=== PATIENT | female | born 1940 | race Caucasian/White ===

== ENCOUNTER 2025-05-09 06:23 | Inpatient (IN) | payer OTHER ==
[~2025-05-09] VITALS: Ht 170.2 cm; Wt 70.6 kg
[2025-05-09] VITALS (7 sets, daily range): BP systolic 168–174; BP diastolic 73–93; PULSE 60–111; RESP 13–21; TEMP 96.8–98.7; O2SAT 95–99
--- NOTE | 2025-05-09 06:38 | ECG ---
[facility] Test Date: 2025-05-09 Test Time: 06:24:55 Pat Name: SAKSHI BROWN Department: ED Room: 0249T Gender: F Screen Handler: ELIGIO : 1940 Requested By: JAVI GARCIA Order Number: [id number] Reading MD: Estuardo Chau Measurements Intervals [place] Rate: 104 P: 0 CT: 0 QRS: 56 QRSD: 94 T: -42 QT: 351 QTc: 462 Interpretive Statements Atrial flutter Probable LVH with secondary repol abnrm Electronically Signed On 05-11-2025 9:54:52 PDT by Estuardo Chau Please click the below link to view image of tracing.
--- NOTE | 2025-05-09 07:13 | ED.PDOC ---
HPI Comments 84 y/o F, with PMHx of AFib and HTN presents to the ED for CC of palpitations. Patient states, she has been experiencing palpitations with associated weakness x3days. Patient reports, a heart rate in the 120-130's. 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 Patient comments, since dosage reduction she has had approximately x13-14 AFib episodes. Patient denies chest pain, shortness of breath, dizziness, nausea, or vomiting. No other symptoms or modifying factors present at this time. 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 all DINING SERVICE INSPECTOR Hx Family History Family History: Unknown Social History Smoker: Non-Smoker Alcohol: Denies ETOH Use Drugs: Denies Drug Use Lives In: Home Constitutional: denies: chills, diaphoresis, fatigue, fever, malaise, sweats, weakness, others EENTM: denies: blurred vision, double vision, ear bleeding, ear discharge, ear drainage, ear pain, ear ringing, eye pain, eye redness, hearing loss, mouth pain, mouth swelling, nasal discharge, nose bleeding, nose congestion, nose pa in, photophobia, tearing, throat pain, throat swelling, voice changes, others Respiratory: denies: cough, hemoptysis, orthopnea, SOB at rest, shortness of breath, SOB with excertion, stridor, wheezing, others Cardiovascular: reports: palpitations; denies: chest pain, dizzy spells, diaphoresis, Dyspnea on exertion, edema, irregular heart beat, left arm pain, lightheadedness, PND, syncope, others Gastrointestinal: denies: abdomen distended, abdominal pain, blood streaked bowels, constipated, diarrhea, dysphagia, difficulty swallowing, hematemesis, m naif, nausea, poor appetite, poor fluid intake, rectal bleeding, rectal pain, vomiting, others Genitourinary: denies: abnormal vagina bleeding, burning, dyspareunia, dysuria, flank pain, frequency, hematuria, incontinence, pain, , vagina discharge, urgency, others Neurological: denies: dizziness, fainting, headache, left sided numbness, left sided weakness, numbness, paresthesia, pre-existing deficit, right sided numbness, right sided weakness, seizure, speech problems, tingling, tremors, weakness, others Musculoskeletal: denies: back pain, gout, joint pain, joint swelling, muscle pain, muscle stiffness, neck pain, others Integumetry: denies: bruises, change in color, change in hair/nails, dryness, laceration, lesions, lumps, rash, wounds, others Allergic/Immunocompromised: denies: Difficulty Healing, Frequent Infections, Hives, Itching, others Hematologic/Lymphatic: denies: anemia, blood clots, easy bleeding, easy bruising, swollen glands, others Endocrine: denies: excessive hunger, excessive sweating, excessive thirst, excessive urination, flushing, intolerance to cold, intolerance to heat, unexpla ined weight gain, unexplained weight loss, others Psychiatric: denies: anxiety, bipolar disorder, depression, hopeless, panic disorder, schizophrenia, sleepless, suicidal, others All Other Systems: Reviewed and Negative Physical Exam General Appearance: No Apparent Distress HEENT: Normal ENT Inspection, PERRL/EOMI Neck: Full Range of Motion, Non-Tender Respiratory: Chest Non-Tender, Lungs Clear, No Accessory Muscle Use, No Respiratory Distress, Normal Breath Sounds Cardiovascular: Irregular, No Murmur, Normal Peripheral Pulses Breast Exam: Deferred Gastrointestinal: No Organomegaly, Non Tender, No Pulsatile Mass, Normal Bowel Sounds, Soft Genitalia: Deferred Pelvic: Deferred Rectal: Deferred Extremities: No calf tenderness, Normal capillary refill, Normal inspection, Normal range of motion, Non-tender, No pedal edema Neurologic: Alert, mammal keeper II-XII nml as Tested, No Motor Deficits, Normal Affect, Normal Mood, No Sensory Deficits Cerebellar Function: Normal Reflexes: Normal Skin: Dry, Normal Color, Warm Peripheral Pulses: 1+ carotid (R), 1+ carotid (L) Lymphatic: No Adenopathy Was a procedure done? Was a procedure done?: No CP Differential Dx Differential Diagnosis: A-fib, A-Flutter, Angina, Anxiety / Panic Attack, Electrolyte Disorder, Heart Failure, Pulmonary Embolus, PVC's, Renal Failure Differential Diagnosis: CHF, HTN Essential, HTN Accelerated Differential Diagnosis: Angina, Pneumonia, Pulmonary Embolus X-Ray, Labs, Meds, VS Vital Signs Date Time Temp Pulse Resp B/P (MAP) Pulse Ox O2 Delivery O2 Flow Rate FiO2 05/09/25 08:13 96.8 111 21 168/93 (118) 95 96.8 05/09/25 08:00 96.8 111 20 168/93 (118) 95 96.8 05/09/25 07:30 97 15 97 Room Air* 0 05/09/25 07:08 105 13 98 Room Air* 0 05/09/25 06:55 105 13 181/87 (118) 98 05/09/25 06:25 97.6 104 16 185/98 (127) 98 97.6 05/09/25 06:24 104 Lab Test 05/09/25 06:30 Range/Units White Blood Count 7.5 4.4-10.8 10^3/uL Red Blood Count 4.30 4.0-5.20 10^6/uL Hemoglobin 13.2 12.2-16.2 g/dL Hematocrit 40.0 36.0-46.0 % Mean Corpuscular Volume 93.0 80.0-100.0 fL Mean Corpuscular Hemoglobin 30.8 28.0-32.0 pg Mean Corpuscular Hemoglobin Concent 33.1 32.0-36.0 g/dL Red Cell Distribution Width 13.8 11.8-14.3 % Platelet Count 187 140-450 10^3/uL Mean Platelet Volume 8.0 6.9-10.8 fL Neutrophils (%) (Auto) 72.8 37.0-80.0 % Lymphocytes (%) (Auto) 11.4 10.0-50.0 % Monocytes (%) (Auto) 11.8 0.0-12.0 % Eosinophils (%) (Auto) 3.0 0.0-7.0 % Basophils (%) (Auto) 1.0 0.0-2.0 % Neutrophils # (Auto) 5.5 1.6-8.6 10 ^3/uL Lymphocytes # (Auto) 0.9 0.4-5.4 10 ^3/uL Monocytes # (Auto) 0.9 0-1.3 10 ^3/uL Eosinophils # (Auto) 0.2 0-0.8 10 ^3/uL Basophils # (Auto) 0.1 0-0.2 10 ^3/uL Nucleated Red Blood Cells 0.1 % Prothrombin Time 20.8 H 9.3-11.8 sec Prothrombin Time INR 2.11 H 0.9-1.15 Activated Partial Thromboplast Time 38.0 H 24.5-34.5 SEC D-Dimer, Quantitative 0.23 0.0-0.49 mg/L FEU Sodium Level 142 136-145 mmol/L Potassium Level 4.5 3.5-5.1 mmol/L Chloride Level 109 H 98-107 mmol/L Carbon Dioxide Level 23 20-31 mmol/L Anion Gap 10 5-15 Blood Urea Nitrogen 21 9-23 mg/dL Creatinine 0.97 0.550-1.02 mg/dL Glomerular Filtration Rate Calc 57 >90 mL/min BUN/Creatinine Ratio 21.6 H 10.0-20.0 Serum Glucose 109 H 74-106 mg/dL Calcium Level 9.9 8.7-10.4 mg/dL Magnesium Level 1.9 1.6-2.6 mg/dL Total Bilirubin 0.9 0.2-1.0 mg/dL Aspartate Amino Transferase (AST) 33 13-40 U/L Alanine Aminotransferase (ALT) 26 7-40 U/L Alkaline Phosphatase 94 46-116 U/L Troponin I High Sensitivity < 3 L </=34 ng/L B-Type Natriuretic Peptide 340.56 0-100 pg/mL Total Protein 6.6 5.7-8.2 g/dL Albumin 4.5 3.2-4.8 g/dL Thyroid Stimulating Hormone (TSH) 0.91 0.55-4.78 uIU/mL Current Medications Medications (Trade) Dose Ordered Sig/Raul Route Start Time Stop Time Status Last Admin Acetaminophen/ Hydrocodone Bitart (Raymond 5/325MG Tab) 1 tab ONCE ONCE PO 05/09/25 08:45 05/09/25 08:46 DC 05/09/25 08:[address] - [address] Ph: [phone] DIAGNOSTIC IMAGING Diagnostic Imaging Report : [id number] Signed PATIENT: SAKSHI BROWN ACCT: [id number] UNIT: [id number] : 1940 LOC: ER ROOM / BED: / AGE / SEX: 84 / F ADM STATUS: REG ER SERVICE 0 ORDERING PHYSICIAN: JAVI GARCIA MD PROCEDURE(s): CXRP - CHEST PORTABLE REASON: atrial fib ORDER NUMBER(s): [id number], ACCESSION NUMBER(s): [id number] CHEST RADIOGRAPH Indication: Atrial fib Technique: Single frontal view of the chest was obtained Comparison: None FINDINGS: Lines and Tubes: None Lungs: No focal consolidation. Pleura: No effusion. No pneumothorax. Cardiomediastinal contours: Unremarkable Bones: No acute osseous abnormality. IMPRESSION: 1. No acute cardiopulmonary disease. ATED BY: FREDRICK ROMERO MD DICTATED DATE/TIME: 05/09/25727 SIGNED BY: FREDRICK ROMERO MD SIGNED DATE/TIME: 05/09/25727 CC: X-Ray, Labs, Meds, VS Comment Course in the emergency department patient came in because of palpitation no shortness of breath no chest pains and some weakness for the past three days she was told to lower amiodarone which she did and since then she has been having recurrent atrial fibrillation the EKG shows atrial fibrillation CBC normal EKG shows atrial fibrillation no at 104 INR 2.11 D-dimer 0.23 CMP negative Magnesium 1.9 Troponin three TSH 0.91 BNP 340 prompt five six Patient will be admitted for further care Dr. Morales we will be consulted Time of 1ST Reevaluation: 07:30 Reevaluation 1ST: Unchanged Time of 2ND Reevaluation: 12:03 Reevaluation 2ND: Improved Patient Education/Counseling: Diagnosis, Treatment, Prognosis Family Education/Counseling: Diagnosis, Treatment, Prognosis, No Family Present SEPSIS Sepsis Screen Date sepsis recognized/suspect: May 09, 2025 Time Sepsis recognized/suspect: 0656 Recent Procedure: No On Antibiotic Therapy: No Respiratory Rate >20: No Heart Rate >90: Yes Temp<36 C (96.8 F) or >38.3 C: No SBP <90 or MAP <65 mmHG: No New Acute Mental Status Change: No Is the patient on CPAP, BIPAP,: No Physician Orders Electrocardigram (05/09/25 07:36) Electrocardigram (05/09/25 09:36) Chest Portable (05/09/25 07:01) Heplock Iv (05/09/25 07:01) Blood Pressure (05/09/25 07:01) Oxygen (05/09/25 07:01) Pulse Oximetry (05/09/25 07:01) Sodium Chloride 0.9% (05/09/25 07:15) Urinalysis (05/09/25 07:01) Vital Signs Date Time Temp Pulse Resp B/P (MAP) Pulse Ox O2 Delivery O2 Flow Rate FiO2 05/09/25 08:13 96.8 111 21 168/93 (118) 95 96.8 05/09/25 08:00 96.8 111 20 168/93 (118) 95 96.8 05/09/25 07:30 97 15 97 Room Air* 0 21 05/09/25 07:08 105 13 98 Room Air* 0 21 05/09/25 06:55 105 13 181/87 (118) 98 05/09/25 06:25 97.6 104 16 185/98 (127) 98 97.6 05/09/25 06:24 104 Laboratory Tests Test 05/09/25 06:30 White Blood Count 7.5 10^3/uL (4.4-10.8) Medications Medications Dose Ordered Sig/Raul Route Start Time Stop Time Status Last Admin Dose Admin Acetaminophen/ Hydrocodone Bitart 1 tab ONCE ONCE PO 05/09/25 08:45 05/09/25 08:46 DC 05/09/25 08:57 Departure 1 Departure Time of Disposition: 12:09 Impression: Primary Impression: Flutter-fibrillation Disposition: ADMITTED INPATIENT Admit to: Tele Condition: Serious Critical Care Note Critical Care Time?: No Stability Stability form required: Yes Heart Score Heart Score: Heart Score Response (Comments) Value History Slightly Suspicious 0 EKG Repolarization Disturb 1 Age >65 2 Risk Factors 1 or 2 risk factors 1 Troponin Normal limit 0 Total 4 I personally scribed for JAVI GARCIA MD ([email or web address]) on 05/09/25 at 07:13. Electronically submitted by Fela Cage ([email or web address]). I personally scribed for JAVI GARCIA MD ([email or web address]) on 05/09/25 at 09:09. El ectronically submitted by Feal Cage ([email or web address]). JAVI GARCIA MD May 09, 2025 07:13
[2025-05-09 07:15] LABS: Hematocrit 40.0 % (36.0-46.0); Hemoglobin 13.2 g/dL (12.2-16.2); Mean Corpuscular Hemoglobin 30.8 pg (28.0-32.0); Mean Corpuscular Volume 93.0 fL (80.0-100.0); Nucleated Red Blood Cells % 0.1 %
[2025-05-09] MEDS: SODIUM CHLORIDE 0.9% 1,000 ML IV ONE (07:15)
[2025-05-09 07:25] LABS: Alanine Aminotransferase 26 U/L (7-40); Albumin 4.5 g/dL (3.2-4.8); Alkaline Phosphatase 94 U/L (46-116); Anion Gap 10 (5-15); BUN/Creatinine Ratio 21.6 (10.0-20.0); Bilirubin, Total 0.9 mg/dL (0.2-1.0); Blood Urea Nitrogen 21 mg/dL (9-23); Calcium 9.9 mg/dL (8.7-10.4); Carbon Dioxide 23 mmol/L (20-31); Magnesium 1.9 mg/dL (1.6-2.6); Potassium 4.5 mmol/L (3.5-5.1); Sodium 142 mmol/L (136-145); Total Protein 6.6 g/dL (5.7-8.2)
[2025-05-09 07:29] LABS: Chloride 109 mmol/L (98-107); Glucose 109 mg/dL (74-106)
--- NOTE | 2025-05-09 07:30 | DVH ---
CHEST RADIOGRAPH Indication: Atrial fib Technique: Single frontal view of the chest was obtained Comparison: None FINDINGS: Lines and Tubes: None Lungs: No focal consolidation. Pleura: No effusion. No pneumothorax. Cardiomediastinal contours: Unremarkable Bones: No acute osseous abnormality. IMPRESSION: 1. No acute cardiopulmonary disease.
[2025-05-09 07:31] LABS: INR 2.11 (0.9-1.15); Partial Thromboplastin Time 38.0 SEC (24.5-34.5); Prothrombin Time 20.8 sec (9.3-11.8)
[2025-05-09] MEDS: HYDROcodone-ACET 5/325MG TAB PO ONE (08:57)
[2025-05-09] MEDS ORDERED: ACETAMINOPHEN 325 MG TAB PO PRN (15:15)
[2025-05-09] MEDS ORDERED: NITROGLYCERIN 0.4 MG SL TAB SL PRN (15:15)
[2025-05-09] MEDS ORDERED: MORPHINE SULFATE INJ 2 MG/ml SYRG IV PRN (15:15)
[2025-05-09] MEDS ORDERED: WARF-66 PO (15:19)
[2025-05-09] MEDS ORDERED: LEVO150T10 PO (15:19)
[2025-05-09] MEDS ORDERED: LOSA-534 PO (15:19)
[2025-05-09] MEDS ORDERED: HYDR25TA87 PO (15:19)
[2025-05-09 15:40] LABS: Triglycerides 97 mg/dL (< 150)
[2025-05-09 15:42] LABS: Cholesterol 139 mg/dL (< 200); HDL Cholesterol 57 mg/dL (40-59)
[2025-05-09] MEDS ORDERED: HYDR-4069 PO (15:45)
--- NOTE | 2025-05-09 15:45 | DVHHP2 ---
History of Present Illness Reason for Visit: Palpitations History of Present Illness Diamante Small is an 84-year-old female with past medical history of hypertension, hyperlipidemia, AFib, glaucoma, right eye surgery at [place] with permanent dilated pupils, and S1 fusion who presents to the ED with palpitations and weakness x3 days. Patient states that there are no triggering or alleviating factors. She also reports that she had gone to [place] and was placed on amio after [place] had [place] on the free[place]. She also endorses that she has had multiple abnormal heart rate rhythms since February of this year. She states that the amio was cut in half from 200-100 mg. Patient also endorses that she had a fall 2 years ago in 10 still have 0 bruising on her legs and upper extremities. She states that she was chasing a dog. In which she also stated she blue her right pupil which is now permanently dilated she reports. She also states that she lives alone and does not use any DMEs to ambulate with. Patient denies any chest pain, shortness of breath, fever, chills, lightheadedness, dizziness, recent trauma or injury, recent travels, recent sick contacts, recent ingestion of spoiled food, abdominal pain, nausea, vomiting, or diarrhea. Cardiovascular: AFIB, HTN, hyperipidemia Past Medical History Glaucoma Past Surgical History: Other (Right eye surgery at [facility] and S1 fusion) Family History: Cancer, Other (Mom with breast cancer and heart disease. Dad with heart disease.) Smoke: No ALCOHOL: none Drugs: None Lives: Alone Domestic Violence: Neg Review of Systems Constitutional: Yes: Weakness Cardiovascular: Palpitations Allergies: Coded Allergies: Atorvastatin (Verified Allergy, Unknown, 05/09/25) Medications Current Medications Medications Dose Ordered Sig/Raul Route Start Time Stop Time Status Last Admin Dose Admin Ondansetron HCl 4 mg Q4HP PRN IV 05/09/25 15:15 UNV Enoxaparin Sodium 40 mg DAILY SC 05/10/25 10:00 UNV Acetaminophen 650 mg Q6HP PRN PO 05/09/25 15:15 UNV Nitroglycerin 0.4 mg Q5MINP PRN SL 05/09/25 15:15 UNV Morphine Sulfate 2 mg Q30M PRN IV 05/09/25 15:15 UNV Exam Vital Signs Vital Signs Date Time Temp Pulse Resp B/P (MAP) Pulse Ox O2 Delivery O2 Flow Rate FiO2 05/09/25 13:44 64 12 140/67 (91) 97 05/09/25 08:13 96.8 96.8 05/09/25 07:30 Room Air* 0 21 General Appearance: Alert, Oriented X3, Cooperative, No acute distress HEENT: Mucous membr. moist/pink Respiratory: Clear to auscultation, Normal air movement Cardiovascular: Normal S1, Normal S2 Abdominal: Normal bowel sounds, Soft Extremities: Normal pulses Neuro: Normal speech, Normal tone, Sensation intact Psych/Mental Status: Mental status NL, Mood NL Labs/Xrays Labs Test 05/09/25 06:30 Range/Units White Blood Count 7.5 4.4-10.8 10^3/uL Red Blood Count 4.30 4.0-5.20 10^6/uL Hemoglobin 13.2 12.2-16.2 g/dL Hematocrit 40.0 36.0-46.0 % Mean Corpuscular Volume 93.0 80.0-100.0 fL Mean Corpuscular Hemoglobin 30.8 28.0-32.0 pg Mean Corpuscular Hemoglobin Concent 33.1 32.0-36.0 g/dL Red Cell Distribution Width 13.8 11.8-14.3 % Platelet Count 187 140-450 10^3/uL Mean Platelet Volume 8.0 6.9-10.8 fL Neutrophils (%) (Auto) 72.8 37.0-80.0 % Lymphocytes (%) (Auto) 11.4 10.0-50.0 % Monocytes (%) (Auto) 11.8 0.0-12.0 % Eosinophils (%) (Auto) 3.0 0.0-7.0 % Basophils (%) (Auto) 1.0 0.0-2.0 % Neutrophils # (Auto) 5.5 1.6-8.6 10 ^3/uL Lymphocytes # (Auto) 0.9 0.4-5.4 10 ^3/uL Monocytes # (Auto) 0.9 0-1.3 10 ^3/uL Eosinophils # (Auto) 0.2 0-0.8 10 ^3/uL Basophils # (Auto) 0.1 0-0.2 10 ^3/uL Nucleated Red Blood Cells 0.1 % Prothrombin Time 20.8 H 9.3-11.8 sec Prothrombin Time INR 2.11 H 0.9-1.15 Activated Partial Thromboplast Time 38.0 H 24.5-34.5 SEC D-Dimer, Quantitative 0.23 0.0-0.49 mg/L FEU Sodium Level 142 136-145 mmol/L Potassium Level 4.5 3.5-5.1 mmol/L Chloride Level 109 H 98-107 mmol/L Carbon Dioxide Level 23 20-31 mmol/L Anion Gap 10 5-15 Blood Urea Nitrogen 21 9-23 mg/dL Creatinine 0.97 0.550-1.02 mg/dL Glomerular Filtration Rate Calc 57 >90 mL/min BUN/Creatinine Ratio 21.6 H 10.0-20.0 Serum Glucose 109 H 74-106 mg/dL Calcium Level 9.9 8.7-10.4 mg/dL Magnesium Level 1.9 1.6-2.6 mg/dL Total Bilirubin 0.9 0.2-1.0 mg/dL Aspartate Amino Transferase (AST) 33 13-40 U/L Alanine Aminotransferase (ALT) 26 7-40 U/L Alkaline Phosphatase 94 46-116 U/L Troponin I High Sensitivity < 3 L </=34 ng/L B-Type Natriuretic Peptide 340.56 0-100 pg/mL Total Protein 6.6 5.7-8.2 g/dL Albumin 4.5 3.2-4.8 g/dL Thyroid Stimulating Hormone (TSH) 0.91 0.55-4.78 uIU/mL CHEST RADIOGRAPH Indication: Atrial fib Technique: Single frontal view of the chest was obtained Comparison: None FINDINGS: Lines and Tubes: None Lungs: No focal consolidation. Pleura: No effusion. No pneumothorax. Cardiomediastinal contours: Unremarkable Bones: No acute osseous abnormality. IMPRESSION: 1. No acute cardiopulmonary disease. Assessment/Plan Assessment/Plan Plan Palpitations Generalized Weakness Hypertensive urgency History of hyperlipidemia History of AFib History of glaucoma History of right eye surgery History of S1 fusion with chronic back pain History of right permanently dilated pupil status post fall 2 years ago after chasing a dog Plan Admit to tele Pain management Troponins UA TSH BNP D-dimer PT/PTT Chest x-ray noted Mag level EKG Echo ordered Hemoglobin A1c TSH Lipid panel Free T4 Diet Home medications reconciled DVT prophylaxis-patient already on warfarin and INR is high PUD prophylaxis-Protonix Discussed plan of care with patient and nurse Cardiology consult [id number] Advanced care planning discussed [id number] Preventive counseling healthy eating habits, physical activity, and regular checkups Plan discussed with: Patient My Orders Orders - BRIANNAMEGAN UGALDE RETENTION MANAGER Procedure Category Date Status Time * Cardiology Consult CONS 05/09/25 Transmitted 15:13 Admit ADMIT 05/09/25 Transmitted 15:13 Allergies MIGDALIA 05/09/25 In Process 15:13 Code Status CODE 05/09/25 Transmitted 15:13 Ondansetron Hcl PHA 05/09/25 Logged (Zofran) 15:15 Enoxaparin Sodium PHA 05/10/25 Logged (Lovenox) 10:00 Complete Blood Count LAB 05/10/25 Verified 04:00 Comprehensive LAB 05/10/25 Verified Metabolic Panel 04:00 Cardiac DIET 05/09/25 Transmitted Diet-2gna,Lofat,Lochol Dinner Acetaminophen Tablet PHA 05/09/25 Logged (Tylenol Tablet) 15:15 Nitroglycerin PHA 05/09/25 Logged Sublingual (Ntrostat 15:15 Morphine Sulfate PHA 05/09/25 Logged Injection 15:15 Stat Ekg For Chest [facility] 05/09/25 In Process Pain 15:13 Notify Md Of Changes [facility] 05/09/25 In Process From Base 15:13 Warp Hanger For [facility] 05/09/25 In Process 24 Hours 15:13 Emergency Dysrhythmia [facility] 05/09/25 In Process Protocol 15:13 Rhythm Strips Once [facility] 05/09/25 In Process Every Shift 15:13 Oxygen By Nasal RT 05/09/25 Transmitted Cannula 15:13 Echo 2d Mode Cardiac US 05/09/25 Logged DOP 15:13 Hemoglobin A1c LAB 05/09/25 Logged 15:13 Thyroid Stimulating LAB 05/09/25 Logged Hormone 15:13 Lipid Panel LAB 05/09/25 Logged 15:13 Free T4 (Free LAB 05/09/25 Logged Thyroxine) 15:13 Losartan Tablet PHA 05/09/25 Verified (Cozaar Tablet) 22:00 Warfarin Sodium PHA 05/10/25 Verified (Coumadin) 10:00 (Nf) Levothyroxine PHA 05/10/25 Verified Sodium 10:00 Atorvastatin (Lipitor) PHA 05/09/25 Verified 22:00 Date of Service: May 09, 2025 Billing Provider: MEGAN JACOB Common Visit Codes: [id number]-[id number] INP/OBS CARE (HIGH) Secondary Visit Codes: [id number] COUNSELING IND, [id number] CARE PLAN 30 MINUTES MEGAN JACOB May 09, 2025 15:45
[2025-05-09] MEDS: PANTOPRAZOLE 40 MG/10 ML VIAL INJ IV SCH (16:00)
[2025-05-09] MEDS: HYDROcodone-ACET 7.5/325MG TAB PO PRN (16:26)
[2025-05-09] MEDS ORDERED: ROSU10TA16 PO (18:41)
[2025-05-09] MEDS ORDERED: AMIO200T33 PO (18:41)
[2025-05-09] MEDS: WARFARIN SODIUM 5 MG TAB PO ONE (20:12)
[2025-05-09] MEDS: PRAVASTATIN SODIUM 20 MG TAB PO SCH (21:29)
[2025-05-09] MEDS: LOSARTAN POTASSIUM 50 MG TAB PO SCH (21:32)
[2025-05-10] VITALS (8 sets, daily range): BP systolic 133–202; BP diastolic 66–92; PULSE 52–99; RESP 16–20; TEMP 97–98.4; O2SAT 93–98
[2025-05-10] MEDS: LEVOTHYROXINE SODIUM 50 MCG TAB PO SCH (05:40)
[2025-05-10 06:05] LABS: Urine Protein, UAD Negative (Negative)
[2025-05-10 06:48] LABS: Hematocrit 35.2 % (36.0-46.0); Hemoglobin 11.7 g/dL (12.2-16.2); Mean Corpuscular Hemoglobin 30.9 pg (28.0-32.0); Mean Corpuscular Volume 93.1 fL (80.0-100.0); Nucleated Red Blood Cells % 0.0 %
[2025-05-10 07:05] LABS: INR 2.37 (0.9-1.15); Partial Thromboplastin Time 38.6 SEC (24.5-34.5); Prothrombin Time 23.1 sec (9.3-11.8)
[2025-05-10 07:09] LABS: Alanine Aminotransferase 22 U/L (7-40); Albumin 4.0 g/dL (3.2-4.8); Alkaline Phosphatase 77 U/L (46-116); Anion Gap 10 (5-15); BUN/Creatinine Ratio 21.6 (10.0-20.0); Bilirubin, Total 0.9 mg/dL (0.2-1.0); Blood Urea Nitrogen 19 mg/dL (9-23); Calcium 10.1 mg/dL (8.7-10.4); Carbon Dioxide 24 mmol/L (20-31); Chloride 108 mmol/L (98-107); Glucose 106 mg/dL (74-106); Potassium 4.3 mmol/L (3.5-5.1); Sodium 142 mmol/L (136-145); Total Protein 5.9 g/dL (5.7-8.2)
[2025-05-10] MEDS ORDERED: ENOXAPARIN SOD 40 MG/0.4 ML SYRINGE SC SCH (10:00)
--- NOTE | 2025-05-10 11:12 | DVHPN2 ---
Subjective Seen and examined at bedside, patient is going into Tachybrady Syndrome. Unable to give Amio IV. Will monitor, may need PPM?? Cardio Cx with Dr. Morales. Unable to DC due to unstable HR. Changes from previous H/P or p: No Changes Cardiovascular: Palpitations Objective Vitals Vital Signs Date Time Temp Pulse Resp B/P (MAP) Pulse Ox O2 Delivery O2 Flow Rate FiO2 05/10/25 10:23 146/76 05/10/25 09:00 97.5 59 16 96 97.5 05/10/25 08:00 Room Air* 0 21 Intake/Output Intake and Output 05/10/25 07:00 Intake Total 500 ml Balance 500 ml Intake Oral 500 ml # Voids 1 General Appearance: Alert, Oriented X3, Cooperative HEENT: Atraumatic Lungs: Clear to auscultation Cardiovascular: Normal S1, Normal S2, Other (Irregular) Abdomen: Normal bowel sounds, Soft Psych/Mental Status: Mental status NL Medications Current Medications Medications Dose Ordered Sig/Raul Route Start Time Stop Time Status Last Admin Dose Admin Ondansetron HCl 4 mg Q4HP PRN IV 05/09/25 15:15 Acetaminophen 650 mg Q6HP PRN PO 05/09/25 15:15 Nitroglycerin 0.4 mg Q5MINP PRN SL 05/09/25 15:15 Morphine Sulfate 2 mg Q30M PRN IV 05/09/25 15:15 Losartan Potassium 50 mg BID PO 05/09/25 22:00 05/10/25 10:23 50 MG Warfarin Sodium 5 mg DAILY PO 05/10/25 10:00 UNV Levothyroxine Sodium 150 mcg DAILY@0600 PO 05/10/25 06:00 05/10/25 05:40 150 MCG Pravastatin Sodium 80 mg HS PO 05/09/25 22:00 05/09/25 21:29 80 MG Acetaminophen/ Hydrocodone Bitart 1 tab QID PRN PO 05/09/25 15:45 05/10/25 05:40 1 TAB Pantoprazole Sodium 40 mg DAILY IV 05/09/25 16:00 05/10/25 10:23 40 MG Warfarin Sodium RX PROTOCOL PER PHARMACY PO 05/09/25 16:15 Hydralazine HCl 25 mg Q8HR PO 05/09/25 22:00 05/10/25 05:41 25 MG Laboratory Results Laboratory Tests 05/10/25 05:12 Chemistry Test 05/10/25 05:12 Albumin 4.0 g/dL (3.2-4.8) Calcium Level 10.1 mg/dL (8.7-10.4) Total Protein 5.9 g/dL (5.7-8.2) Coagulation Test 05/10/25 05:12 Prothrombin Time 23.1 sec (9.3-11.8) H Prothrombin Time INR 2.37 (0.9-1.15) H Activated Partial Thromboplast Time 38.6 SEC (24.5-34.5) H LFT Test 05/10/25 05:12 Alanine Aminotransferase (ALT) 22 U/L (7-40) Alkaline Phosphatase 77 U/L (46-116) Aspartate Amino Transferase (AST) 28 U/L (13-40) Total Bilirubin 0.9 mg/dL (0.2-1.0) Urinalysis Test 05/10/25 05:00 Urine Color Light-yellow (Yellow) Urine Clarity Clear (Clear) Urine pH 5.5 (5.0-9.0) Urine Specific [place] 1.021 (1.001-1.035) Urine Protein Negative (Negative) Urine Ketones Negative (Negative) Urine Blood Negative /uL (Negative) Urine Nitrite Negative (Negative) Urine Bilirubin Negative (Negative) Urine Urobilinogen Normal mg/dL (Negative) Urine Leukocyte Esterase 1+ /uL (Negative) Urine RBC 18 /hpf (0 - 4) Urine Microscopic WBC 12 /HPF (0-5) H Urine Squamous Epithelial Cells Few /hpf (<5) Urine Bacteria Few /hpf (None Seen) H Urine Glucose Normal mg/dL (Normal) Assessment/Plan Assessment/Plan # A-Fibb with RVR vs. Tachybrady Syndrome # Hypertensive Heart Disease with possible acute diastolic CHF- Monitor and adjust meds as needed, ECHO. Cx. Dr. Morales # Hypothyroid- Synthroid Critical care time 37 mins Plan discussed with: Patient My Orders Orders - SANDRA ROTH MD Procedure Category Date Status Time Electrocardigram EKG 05/10/25 Logged 10:30 Basic Metabolic Panel LAB 05/11/25 Verified 04:00 Magnesium LAB 05/11/25 Verified 04:00 Date of Service: May 10, 2025 Billing Provider: SANDRA ROTH MD Common Visit Codes: [id number] CARE 30-74 MIN SANDRA ROTH MD May 10, 2025 11:12
[2025-05-10] MEDS: CEPHALEXIN 250 MG CAP PO SCH (13:26)
--- NOTE | 2025-05-10 14:48 | DVHSR ---
APPROVED REPORT EXAM: Two-dimensional and M-mode echocardiogram with Doppler and color Doppler. Blood Pressure: 134/72 mmHg INDICATION Palpitations RISK FACTORS Height: 67, Weight: 164 DIMENSIONS LVDd (3.8-5.7cm)LA (2D)3.9 (1.9-4.0cm)Aortic Root2.5 (2.0-3.7cm) LVDs (2.5-4.0cm)LA (MM) (1.9-4.0cm)Aortic Cusp Exc0.9 (1.5-2.0cm) EF (%) 73.0 (55-70%)Rt. Atrium3.5 (1.9-4.0cm)Asc. Aorta cm Mitral Valve MitralMitral Stenosis E wave1.37m/sMV Mean GR.2mmHg A wave1.06m/sMV Peak GR.116mmHg E/A ratio1.32D MVAcm2 DECEL [id number] 1/2 [id number] IVRTmsDop MVA2.85cm2 Aortic Valve Aortic ValveAortic Stenosis V11.11m/[place] Mean GR.17mmHg V22.95m/[place] Peak GR.35mmHg LVOT Diameter1.7 (1.8-2.4cm)Doppler AVA0.85cm2 Pulmonic Valve V21.03m/s Tricuspid Valve TR Velocity2.56m/s [id number] Conclusion lvef 55% moderate LVH aortic sclerosi moderate MAC mild mitral regurg
[2025-05-10] MEDS: HYDROmorphone HCL 2 MG/ML VL/or syr IV PRN (16:25)
--- NOTE | 2025-05-10 17:02 | DVH ---
EXAM: CT HEAD WITHOUT CONTRAST HISTORY: Severe Headaches COMPARISON: None TECHNIQUE: Noncontrast axial CT images of the head were performed. Sagittal and coronal reformatted i mages were obtained. This CT exam was performed using 1 or more of the following dose reduction techn iques: Automated exposure control, adjustment of the mA and/or kv according to patient size, or the u se of iterative reconstruction techniques. Radiation Dose: CTDI volume is 56.36 mGy. Dose-length product is 998.01 mGy*cm FINDINGS: No intracranial hemorrhage, mass, midline shift, hydrocephalus, or evidence of acute large vessel inf arct. There is mildly decreased attenuation in the periventricular white matter. There are bilateral basal ganglia calcifications. There are postoperative changes of bilateral cataract extraction surg denise. There is mucosal thickening of the right sphenoid and ethmoid sinuses. The bilateral mastoid air cells and middle ear spaces are clear. There is an old fracture of the right orbital floor. No crani al fracture or scalp edema. IMPRESSION: 1. Mild chronic ischemic changes without evidence of acute intracranial process. 2. Mild paranasal sinus disease. 3. Old fracture of the right orbital floor.
[2025-05-10] MEDS: WARFARIN SODIUM 2 MG TAB PO ONE (18:26)
[2025-05-10] MEDS: ONDANSETRON HCL 4 MG/2 ML VIAL IV PRN (18:30)
[2025-05-11] VITALS (7 sets, daily range): BP systolic 100–119; BP diastolic 56–80; PULSE 85–104; RESP 18–19; TEMP 97.4–98.1; O2SAT 94–99
[2025-05-11] MEDS: PANTOPRAZOLE 40 MG TAB PO SCH (05:38)
[2025-05-11 06:22] LABS: Anion Gap 12 (5-15); Calcium 10.2 mg/dL (8.7-10.4); Carbon Dioxide 23 mmol/L (20-31); Chloride 101 mmol/L (98-107); Potassium 4.3 mmol/L (3.5-5.1)
[2025-05-11 06:28] LABS: BUN/Creatinine Ratio 20.8 (10.0-20.0); Blood Urea Nitrogen 20 mg/dL (9-23); Glucose 108 mg/dL (74-106); Magnesium 1.7 mg/dL (1.6-2.6); Sodium 136 mmol/L (136-145)
[2025-05-11 06:32] LABS: INR 2.42 (0.9-1.15); Partial Thromboplastin Time 40.7 SEC (24.5-34.5); Prothrombin Time 23.5 sec (9.3-11.8)
[2025-05-11 06:34] LABS: Hematocrit 41.4 % (36.0-46.0); Hemoglobin 14.1 g/dL (12.2-16.2); Mean Corpuscular Hemoglobin 31.1 pg (28.0-32.0); Mean Corpuscular Volume 91.2 fL (80.0-100.0); Nucleated Red Blood Cells % 0.1 %
--- NOTE | 2025-05-11 13:45 | DVHPN2 ---
Reviewed: Care Plan, H&P, Labs, Medications, Previous Orders, Radiology Changes from previous H/P or p: No Changes Cardiovascular: Palpitations Objective Vitals Vital Signs Date Time Temp Pulse Resp B/P (MAP) Pulse Ox O2 Delivery O2 Flow Rate FiO2 05/11/25 10:00 104/56 05/11/25 09:00 97.4 92 18 97 97.4 05/10/25 20:00 Room Air* 0 21 Intake/Output Intake and Output 05/11/25 07:00 Intake Total 715 ml Balance 715 ml Intake Oral 715 ml # Voids 4 General Appearance: Alert, Oriented X3, Cooperative HEENT: Atraumatic Lungs: Clear to auscultation Cardiovascular: Normal S1, Normal S2, Other (Irregular) Abdomen: Normal bowel sounds, Soft Psych/Mental Status: Mental status NL Medications Current Medications Medications Dose Ordered Sig/Raul Route Start Time Stop Time Status Last Admin Dose Admin Ondansetron HCl 4 mg Q4HP PRN IV 05/09/25 15:15 05/10/25 18:30 4 MG Acetaminophen 650 mg Q6HP PRN PO 05/09/25 15:15 Nitroglycerin 0.4 mg Q5MINP PRN SL 05/09/25 15:15 Morphine Sulfate 2 mg Q30M PRN IV 05/09/25 15:15 Losartan Potassium 50 mg BID PO 05/09/25 22:00 05/10/25 21:10 50 MG Warfarin Sodium 5 mg DAILY PO 05/10/25 10:00 UNV Levothyroxine Sodium 150 mcg DAILY@0600 PO 05/10/25 06:00 05/11/25 05:38 150 MCG Pravastatin Sodium 80 mg HS PO 05/09/25 22:00 05/10/25 21:12 80 MG Acetaminophen/ Hydrocodone Bitart 1 tab QID PRN PO 05/09/25 15:45 05/11/25 05:43 1 TAB Warfarin Sodium RX PROTOCOL PER PHARMACY PO 05/09/25 16:15 Hydralazine HCl 25 mg Q8HR PO 05/09/25 22:00 05/10/25 21:09 25 MG Pantoprazole Sodium 40 mg DAILY@0600 PO 05/11/25 06:00 05/11/25 05:38 40 MG Cephalexin 500 mg TID PO 05/10/25 14:00 05/11/25 05:38 500 MG Clonidine HCl 0.2 mg Q6HP PRN PO 05/10/25 16:00 Hydromorphone HCl 1 mg Q3HPRN PRN IV 05/10/25 16:00 05/10/25 16:25 1 MG Laboratory Results Laboratory Tests 05/11/25 05:56 Chemistry Test 05/11/25 05:56 Calcium Level 10.2 mg/dL (8.7-10.4) Magnesium Level 1.7 mg/dL (1.6-2.6) Coagulation Test 05/11/25 05:56 Prothrombin Time 23.5 sec (9.3-11.8) H Prothrombin Time INR 2.42 (0.9-1.15) H Activated Partial Thromboplast Time 40.7 SEC (24.5-34.5) H Urinalysis Test 05/10/25 05:00 Urine Color Light-yellow (Yellow) Urine Clarity Clear (Clear) Urine pH 5.5 (5.0-9.0) Urine Specific [place] 1.021 (1.001-1.035) Urine Protein Negative (Negative) Urine Ketones Negative (Negative) Urine Blood Negative /uL (Negative) Urine Nitrite Negative (Negative) Urine Bilirubin Negative (Negative) Urine Urobilinogen Normal mg/dL (Negative) Urine Leukocyte Esterase 1+ /uL (Negative) Urine RBC 18 /hpf (0 - 4) Urine Microscopic WBC 12 /HPF (0-5) H Urine Squamous Epithelial Cells Few /hpf (<5) Urine Bacteria Few /hpf (None Seen) H Urine Glucose Normal mg/dL (Normal) Labs and/or images reviewed: Labs reviewed by me, Image(s) reviewed by me Assessment/Plan Assessment/Plan Covering for Dr Durant #A-Fib with RVR vs. Tachybrady Syndrome # Hypertensive Heart Disease with possible acute diastolic CHF- Monitor and adjust meds as needed, ECHO 55 percent ejection fraction. Cx. Dr. Morales appreciated # Hypothyroid- Synthroid TSH normal Plan discussed with: Patient Date of Service: May 11, 2025 Billing Provider: GARO MACHADO MD Common Visit Codes: [id number] INP/OBS CARE(HIGH) GARO MACHADO MD May 11, 2025 13:45
--- NOTE | 2025-05-11 17:42 | DVHCONRES ---
Date Seen: May 11, 2025 Resident Creating Document: PREETI MARTINEZ RESDIENT History of Present Illness This is an 84-year-old female with past medical history of paroxysmal AFib, dyslipidemia, hypertension and glaucoma came to the hospital due to palpitation. Patient has history of AFib for 20 years, and has been controlled with 200 mg amiodarone daily. Amiodarone was cut down to 100 mg daily on February 2025, which subsequently the patient developed palpitation and AFib. She underwent Holter monitoring at Dr. Morales office 3 weeks back (results pending), but since couple of the she got more worse which prompted this visit. He also reports of generalized weakness. PMHx: Paroxysmal AFib, dyslipidemia, hypertension and glaucoma Home medication: Amiodarone 100 mg daily, hydralazine 25 t.i.d., losartan 50 mg b.i.d., rosuvastatin, warfarin 5 mg daily Allergic history: Atorvastatin Chest seen and examined at the bedside. Patient is seen complaining of palpitation. Family History: Patient reports no known family medical history. Allergies: Coded Allergies: Atorvastatin (Verified Allergy, Unknown, 05/09/25) Home Meds Reported Medications Amiodarone Hcl (Amiodarone Hcl) 200 Mg Tab, 100 MG PO DAILY for 30 Days 05/09/25 Rosuvastatin Calcium (Crestor) 10 Mg Tab, 10 MG PO, TAB 05/09/25 Hydrocodone-Acetaminophen (Hydrocodone/Acetaminophen 7.5-325 mg) 1 Tab Tab, 1 TAB PO QID PRN 05/09/25 Warfarin Sodium (Warfarin Sodium) 5 Mg Tab, 1 TAB PO DAILY 05/09/25 Hydralazine HCl (Hydralazine HCl) 25 Mg Tab, 1 TAB PO TID PRN 05/09/25 Losartan Potassium (Losartan Potassium) 50 Mg Tab, 1 TAB PO BID 05/09/25 Levothyroxine Sodium (Levothyroxine Sodium) 150 Mcg Tab, 1 TAB PO DAILY 05/09/25 Current Medications Current Medications Medications (Trade) Dose Ordered Sig/Raul Route PRN Reason Start Time Stop Time Status Last Admin Pantoprazole Sodium (Protonix Tablet) 40 mg DAILY@0600 PO 05/11/25 06:00 05/11/25 05:38 Vital Signs Vital Signs Date Time Temp Pulse Resp B/P (MAP) Pulse Ox O2 Delivery O2 Flow Rate FiO2 05/11/25 14:00 119/62 05/11/25 13:00 97.4 90 18 96 97.4 05/11/25 08:00 Room Air* 0 21 Physical Exam General Appearance: Alert, Oriented X3, Cooperative, No acute distress HEENT: Atraumatic, PERRLA, EOMI, Mucous membrane moist/pink Respiratory: Clear to auscultation, Normal air movement Cardiovascular: Regular rate, Normal S1, Normal S2, No murmurs, no chest wall tenderness Abdominal: Normal bowel sounds, Soft, No tenderness, No hepatospenomegaly, No masses Extremities: No clubbing, No cyanosis, No edema, Normal pulses, No tenderness/swelling Skin: No rashes, No breakdown, No significant lesion Neuro: Normal gait, Normal speech, Strength at 5/5 X4 ext, Normal tone, Sensation intact, Cranial nerves 3-12 NL, Reflexes 2+ Psych/Mental Status: Mental status NL, Mood NL Labs/Diagnostic Data Labs Test 05/11/25 05:56 05/10/25 05:12 05/10/25 05:00 05/09/25 06:30 Range/Units White Blood Count 9.1 # 4.4-10.8 10^3/uL Red Blood Count 4.54 4.0-5.20 10^6/uL Hemoglobin 14.1 # 12.2-16.2 g/dL Hematocrit 41.4 # 36.0-46.0 % Mean Corpuscular Volume 91.2 80.0-100.0 fL Mean Corpuscular Hemoglobin 31.1 28.0-32.0 pg Mean Corpuscular Hemoglobin Concent 34.1 32.0-36.0 g/dL Red Cell Distribution Width 13.4 11.8-14.3 % Platelet Count 239 140-450 10^3/uL Mean Platelet Volume 7.7 6.9-10.8 fL Neutrophils (%) (Auto) 72.0 37.0-80.0 % Lymphocytes (%) (Auto) 13.6 10.0-50.0 % Monocytes (%) (Auto) 10.8 0.0-12.0 % Eosinophils (%) (Auto) 2.6 0.0-7.0 % Basophils (%) (Auto) 1.0 0.0-2.0 % Neutrophils # (Auto) 6.5 1.6-8.6 10 ^3/uL Lymphocytes # (Auto) 1.2 0.4-5.4 10 ^3/uL Monocytes # (Auto) 1.0 0-1.3 10 ^3/uL Eosinophils # (Auto) 0.2 0-0.8 10 ^3/uL Basophils # (Auto) 0.1 0-0.2 10 ^3/uL Nucleated Red Blood Cells 0.1 % Prothrombin Time 23.5 H 9.3-11.8 sec Prothrombin Time INR 2.42 H 0.9-1.15 Activated Partial Thromboplast Time 40.7 H 24.5-34.5 SEC Sodium Level 136 # 136-145 mmol/L Potassium Level 4.3 3.5-5.1 mmol/L Chloride Level 101 98-107 mmol/L Carbon Dioxide Level 23 20-31 mmol/L Anion Gap 12 5-15 Blood Urea Nitrogen 20 9-23 mg/dL Creatinine 0.96 0.550-1.02 mg/dL Glomerular Filtration Rate Calc 58 >90 mL/min BUN/Creatinine Ratio 20.8 H 10.0-20.0 Serum Glucose 108 H 74-106 mg/dL Calcium Level 10.2 8.7-10.4 mg/dL Magnesium Level 1.7 1.6-2.6 mg/dL Total Bilirubin 0.9 0.2-1.0 mg/dL Aspartate Amino Transferase (AST) 28 13-40 U/L Alanine Aminotransferase (ALT) 22 7-40 U/L Alkaline Phosphatase 77 46-116 U/L Total Protein 5.9 5.7-8.2 g/dL Albumin 4.0 3.2-4.8 g/dL Urine Color Light-yellow Yellow Urine Clarity Clear Clear Urine pH 5.5 5.0-9.0 Urine Specific [place] 1.021 1.001-1.035 Urine Protein Negative Negative Urine Ketones Negative Negative Urine Blood Negative Negative /uL Urine Nitrite Negative Negative Urine Bilirubin Negative Negative Urine Urobilinogen Normal Negative mg/dL Urine Leukocyte Esterase 1+ Negative /uL Urine RBC 18 0 - 4 /hpf Urine Microscopic WBC 12 H 0-5 /HPF Urine Squamous Epithelial Cells Few <5 /hpf Urine Bacteria Few H None Seen /hpf Urine Glucose Normal Normal mg/dL D-Dimer, Quantitative 0.23 0.0-0.49 mg/L FEU Hemoglobin A1c 5.5 <5.7 % A1C Troponin I High Sensitivity < 3 L </=34 ng/L B-Type Natriuretic Peptide 340.56 0-100 pg/mL Triglycerides Level 97 < 150 mg/dL Cholesterol Level 139 < 200 mg/dL LDL Cholesterol 70 < 100 mg/dL HDL Cholesterol 57 40-59 mg/dL Thyroid Stimulating Hormone (TSH) 0.91 0.55-4.78 uIU/mL Free Thyroxine (T4) Calculated 1.78 H 0.89-1.76 ng/dL Assessment Palpitation due to atrial fibrillation Paroxysmal AFib Hypertension Dyslipidemia Glaucoma EKGs shows atrial fibrillation * Serial trop I is within normal limits, BNP is raised at 304 * Echo shows moderate LVH with LVEF 55% * Chads Vasc score: 4 Plan/recommendation (Case discussed with Dr. Moraels) * Continue anticoagulant, warfarin * Metoprolol 25 mg twice daily * Amiodarone 200 mg daily * We follow up with the patient * Rest of plan per primary team Thank you giving us the opportunity to take care of your patient. Please call back if you have any question/concern. Plan discussed with: Patient, Other (RN) PREETI MARTINEZ May 11, 2025 17:42
[2025-05-11] MEDS: WARFARIN SODIUM 2 MG TAB PO ONE (17:52)
[2025-05-11] MEDS: AMIODARONE HCL 200 MG TAB PO ONE (19:15)
[2025-05-11] MEDS: METOPROLOL TARTRATE 25 MG TAB PO SCH (22:09)
[2025-05-12] VITALS (8 sets, daily range): BP systolic 115–128; BP diastolic 61–69; PULSE 51–62; RESP 16–18; TEMP 97.6–98.1; O2SAT 94–98
[2025-05-12 07:28] LABS: INR 2.59 (0.9-1.15); Partial Thromboplastin Time 40.8 SEC (24.5-34.5); Prothrombin Time 25.0 sec (9.3-11.8)
--- NOTE | 2025-05-12 08:19 | DVHPN2 ---
Progress Note Date Seen: May 12, 2025 Medical Necessity Reason Pt with a Central, PICC or Fol: No Subjective Patient reports: Feels better Other Systems: afib --> SR Objective vital signs Vital Sign Date Time Temp Pulse Resp B/P (MAP) Pulse Ox O2 Delivery O2 Flow Rate FiO2 05/12/25 05:00 98.0 62 17 123/63 (83) 94 98.0 05/11/25 20:00 Room Air* 0 21 Total Intake and Output 05/11/25 05/11/25 05/12/25 15:00 23:00 07:00 Intake Total 705 ml 1372 ml Output Total 920 ml Balance 705 ml 452 ml medications Current Medications Medications Dose Ordered Sig/Raul Route Start Time Stop Time Status Last Admin Dose Admin Ondansetron HCl 4 mg Q4HP PRN IV 05/09/25 15:15 05/10/25 18:30 4 MG Acetaminophen 650 mg Q6HP PRN PO 05/09/25 15:15 Nitroglycerin 0.4 mg Q5MINP PRN SL 05/09/25 15:15 Morphine Sulfate 2 mg Q30M PRN IV 05/09/25 15:15 Losartan Potassium 50 mg BID PO 05/09/25 22:00 05/11/25 22:10 50 MG Warfarin Sodium 5 mg DAILY PO 05/10/25 10:00 UNV Levothyroxine Sodium 150 mcg DAILY@0600 PO 05/10/25 06:00 05/12/25 06:34 150 MCG Pravastatin Sodium 80 mg HS PO 05/09/25 22:00 05/10/25 21:12 80 MG Acetaminophen/ Hydrocodone Bitart 1 tab QID PRN PO 05/09/25 15:45 05/11/25 15:00 1 TAB Warfarin Sodium RX PROTOCOL PER PHARMACY PO 05/09/25 16:15 Pantoprazole Sodium 40 mg DAILY@0600 PO 05/11/25 06:00 05/12/25 06:35 40 MG Cephalexin 500 mg TID PO 05/10/25 14:00 05/12/25 06:35 500 MG Clonidine HCl 0.2 mg Q6HP PRN PO 05/10/25 16:00 Hydromorphone HCl 1 mg Q3HPRN PRN IV 05/10/25 16:00 05/10/25 16:25 1 MG Metoprolol Tartrate 25 mg BID PO 05/11/25 22:00 05/11/25 22:09 25 MG Amiodarone HCl 200 mg DAILY PO 05/12/25 10:00 Examination: GENERAL:Abnormal, HEENT:Abnormal, LUNGS:Abnormal, CVS:Abnormal, ABDOMEN:Abnormal laboratory and microbiology Laboratory Tests 05/11/25 05:56 Test 05/11/25 05:56 Range/Units Serum Glucose 108 H 74-106 mg/dL Problem List/Assessment/Plan Problem List/Assessment/Plan afib htn HL cont losarta and hydralazine increased amio to 200 mg currently SR observe today consider bb 1 dose given Plan discussed with: Patient Date of Service: May 12, 2025 Billing Provider: NANCY ROGERS MD Common Visit Codes: NOT BILLABLE NANCY ROGERS MD May 12, 2025 08:19
--- NOTE | 2025-05-12 09:55 | DVHPN2 ---
Reviewed: Care Plan, H&P, Labs, Medications, Previous Orders, Radiology Changes from previous H/P or p: No Changes Cardiovascular: Palpitations Objective Vitals Vital Signs Date Time Temp Pulse Resp B/P (MAP) Pulse Ox O2 Delivery O2 Flow Rate FiO2 05/12/25 05:00 98.0 62 17 123/63 (83) 94 98.0 05/11/25 20:00 Room Air* 0 21 Intake/Output Intake and Output 05/12/25 07:00 Intake Total 2077 ml Output Total 920 ml Balance 1157 ml Intake Oral 2077 ml Output Urine Total 920 ml # Voids 2 General Appearance: Alert, Oriented X3, Cooperative HEENT: Atraumatic Lungs: Clear to auscultation Cardiovascular: Normal S1, Normal S2, Other (Irregular) Abdomen: Normal bowel sounds, Soft Psych/Mental Status: Mental status NL Medications Current Medications Medications Dose Ordered Sig/Raul Route Start Time Stop Time Status Last Admin Dose Admin Ondansetron HCl 4 mg Q4HP PRN IV 05/09/25 15:15 05/10/25 18:30 4 MG Acetaminophen 650 mg Q6HP PRN PO 05/09/25 15:15 Nitroglycerin 0.4 mg Q5MINP PRN SL 05/09/25 15:15 Morphine Sulfate 2 mg Q30M PRN IV 05/09/25 15:15 Losartan Potassium 50 mg BID PO 05/09/25 22:00 05/11/25 22:10 50 MG Warfarin Sodium 5 mg DAILY PO 05/10/25 10:00 UNV Levothyroxine Sodium 150 mcg DAILY@0600 PO 05/10/25 06:00 05/12/25 06:34 150 MCG Pravastatin Sodium 80 mg HS PO 05/09/25 22:00 05/10/25 21:12 80 MG Acetaminophen/ Hydrocodone Bitart 1 tab QID PRN PO 05/09/25 15:45 05/11/25 15:00 1 TAB Warfarin Sodium RX PROTOCOL PER PHARMACY PO 05/09/25 16:15 Pantoprazole Sodium 40 mg DAILY@0600 PO 05/11/25 06:00 05/12/25 06:35 40 MG Cephalexin 500 mg TID PO 05/10/25 14:00 05/12/25 06:35 500 MG Clonidine HCl 0.2 mg Q6HP PRN PO 05/10/25 16:00 Hydromorphone HCl 1 mg Q3HPRN PRN IV 05/10/25 16:00 05/10/25 16:25 1 MG Metoprolol Tartrate 25 mg BID PO 05/11/25 22:00 05/11/25 22:09 25 MG Amiodarone HCl 200 mg DAILY PO 05/12/25 10:00 Laboratory Results Laboratory Tests 05/11/25 05:56 Coagulation Test 05/12/25 04:20 Prothrombin Time 25.0 sec (9.3-11.8) H Prothrombin Time INR 2.59 (0.9-1.15) H Activated Partial Thromboplast Time 40.8 SEC (24.5-34.5) H Urinalysis Test 05/10/25 05:00 Urine Color Light-yellow (Yellow) Urine Clarity Clear (Clear) Urine pH 5.5 (5.0-9.0) Urine Specific [place] 1.021 (1.001-1.035) Urine Protein Negative (Negative) Urine Ketones Negative (Negative) Urine Blood Negative /uL (Negative) Urine Nitrite Negative (Negative) Urine Bilirubin Negative (Negative) Urine Urobilinogen Normal mg/dL (Negative) Urine Leukocyte Esterase 1+ /uL (Negative) Urine RBC 18 /hpf (0 - 4) Urine Microscopic WBC 12 /HPF (0-5) H Urine Squamous Epithelial Cells Few /hpf (<5) Urine Bacteria Few /hpf (None Seen) H Urine Glucose Normal mg/dL (Normal) Labs and/or images reviewed: Labs reviewed by me, Image(s) reviewed by me Assessment/Plan Assessment/Plan Covering for Dr Durant #A-Fib with RVR vs. Tachybrady Syndrome, amiodarone metoprolol # Hypertensive Heart Disease with possible acute diastolic CHF- Monitor and adjust meds as needed, ECHO 55 percent ejection fraction. Cx. Dr. Morales appreciated, losartan hydralazine # Hypothyroid- Synthroid TSH normal Plan discussed with: Patient My Orders Orders - GARO MACHADO MD Procedure Category Date Status Time * Cardiology Consult CONS 05/11/25 Transmitted 13:40 Date of Service: May 12, 2025 Billing Provider: GARO MACHADO MD Common Visit Codes: [id number] INP/OBS CARE(HIGH) GARO MACHADO MD May 12, 2025 09:55
[2025-05-12] MEDS: AMIODARONE HCL 200 MG TAB PO SCH (10:04)
[2025-05-12] MEDS: WARFARIN SODIUM 2 MG TAB PO ONE (17:22)
[2025-05-13] VITALS (8 sets, daily range): BP systolic 124–148; BP diastolic 56–82; PULSE 47–54; RESP 16–19; TEMP 97–97.9; O2SAT 96–99
[2025-05-13 07:07] LABS: Hematocrit 37.9 % (36.0-46.0); Hemoglobin 12.9 g/dL (12.2-16.2); Mean Corpuscular Hemoglobin 31.2 pg (28.0-32.0); Mean Corpuscular Volume 91.8 fL (80.0-100.0); Nucleated Red Blood Cells % 0.0 %
[2025-05-13 07:17] LABS: INR 2.19 (0.9-1.15); Partial Thromboplastin Time 37.8 SEC (24.5-34.5); Prothrombin Time 21.5 sec (9.3-11.8)
--- NOTE | 2025-05-13 11:05 | DVHPN2 ---
Reviewed: Care Plan, H&P, Labs, Medications, Previous Orders, Radiology Changes from previous H/P or p: No Changes Cardiovascular: Palpitations Objective Vitals Vital Signs Date Time Temp Pulse Resp B/P (MAP) Pulse Ox O2 Delivery O2 Flow Rate FiO2 05/13/25 09:09 50 129/72 05/13/25 09:00 97.0 16 98 97.0 05/12/25 20:00 Room Air* 0 21 Intake/Output Intake and Output 05/13/25 07:00 Intake Total 2345 ml Balance 2345 ml Intake Oral 2345 ml # Voids 6 # Bowel Movements 2 General Appearance: Alert, Oriented X3, Cooperative HEENT: Atraumatic Lungs: Clear to auscultation Cardiovascular: Normal S1, Normal S2, Other (Irregular) Abdomen: Normal bowel sounds, Soft Psych/Mental Status: Mental status NL Medications Current Medications Medications Dose Ordered Sig/Raul Route Start Time Stop Time Status Last Admin Dose Admin Ondansetron HCl 4 mg Q4HP PRN IV 05/09/25 15:15 05/10/25 18:30 4 MG Acetaminophen 650 mg Q6HP PRN PO 05/09/25 15:15 Nitroglycerin 0.4 mg Q5MINP PRN SL 05/09/25 15:15 Morphine Sulfate 2 mg Q30M PRN IV 05/09/25 15:15 Losartan Potassium 50 mg BID PO 05/09/25 22:00 05/13/25 09:08 50 MG Warfarin Sodium 5 mg DAILY PO 05/10/25 10:00 UNV Levothyroxine Sodium 150 mcg DAILY@0600 PO 05/10/25 06:00 05/13/25 06:22 150 MCG Pravastatin Sodium 80 mg HS PO 05/09/25 22:00 05/12/25 23:42 80 MG Acetaminophen/ Hydrocodone Bitart 1 tab QID PRN PO 05/09/25 15:45 05/13/25 06:22 1 TAB Warfarin Sodium RX PROTOCOL PER PHARMACY PO 05/09/25 16:15 Pantoprazole Sodium 40 mg DAILY@0600 PO 05/11/25 06:00 05/13/25 06:22 40 MG Cephalexin 500 mg TID PO 05/10/25 14:00 05/13/25 06:22 500 MG Clonidine HCl 0.2 mg Q6HP PRN PO 05/10/25 16:00 Hydromorphone HCl 1 mg Q3HPRN PRN IV 05/10/25 16:00 05/10/25 16:25 1 MG Metoprolol Tartrate 25 mg BID PO 05/11/25 22:00 05/12/25 23:51 25 MG Amiodarone HCl 200 mg DAILY PO 05/12/25 10:00 05/13/25 09:08 200 MG Laboratory Results Laboratory Tests 05/11/25 05:56 05/13/25 06:09 Coagulation Test 05/13/25 06:09 Prothrombin Time 21.5 sec (9.3-11.8) H Prothrombin Time INR 2.19 (0.9-1.15) H Activated Partial Thromboplast Time 37.8 SEC (24.5-34.5) H Urinalysis Test 05/10/25 05:00 Urine Color Light-yellow (Yellow) Urine Clarity Clear (Clear) Urine pH 5.5 (5.0-9.0) Urine Specific [place] 1.021 (1.001-1.035) Urine Protein Negative (Negative) Urine Ketones Negative (Negative) Urine Blood Negative /uL (Negative) Urine Nitrite Negative (Negative) Urine Bilirubin Negative (Negative) Urine Urobilinogen Normal mg/dL (Negative) Urine Leukocyte Esterase 1+ /uL (Negative) Urine RBC 18 /hpf (0 - 4) Urine Microscopic WBC 12 /HPF (0-5) H Urine Squamous Epithelial Cells Few /hpf (<5) Urine Bacteria Few /hpf (None Seen) H Urine Glucose Normal mg/dL (Normal) Labs and/or images reviewed: Labs reviewed by me, Image(s) reviewed by me Assessment/Plan Assessment/Plan afib with RVR: On Coumadin, metoprolol tartrate 25 mg p.o. b.i.d., amiodarone 200 mg p.o. daily, cardiology consult by Dr. Morales appreciated htn: Losartan Cozaar HL: Lipitor Hypothyroidism: Synthroid Plan discussed with: Patient Date of Service: May 13, 2025 Billing Provider: GARO MACHADO MD Common Visit Codes: [id number] INP/OBS CARE(HIGH) GARO MACHADO MD May 13, 2025 11:05
--- NOTE | 2025-05-13 12:44 | DVHPN2 ---
Progress Note Date Seen: May 13, 2025 Medical Necessity Reason Pt with a Central, PICC or Fol: No Subjective Patient reports: Feels better Objective vital signs Vital Sign Date Time Temp Pulse Resp B/P (MAP) Pulse Ox O2 Delivery O2 Flow Rate FiO2 05/13/25 09:09 50 129/72 05/13/25 09:00 97.0 16 98 97.0 05/13/25 08:00 Room Air* 0 21 Total Intake and Output 05/12/25 05/12/25 05/13/25 15:00 23:00 07:00 Intake Total 745 ml 1600 ml Balance 745 ml 1600 ml medications Current Medications Medications Dose Ordered Sig/Raul Route Start Time Stop Time Status Last Admin Dose Admin Ondansetron HCl 4 mg Q4HP PRN IV 05/09/25 15:15 05/10/25 18:30 4 MG Acetaminophen 650 mg Q6HP PRN PO 05/09/25 15:15 Nitroglycerin 0.4 mg Q5MINP PRN SL 05/09/25 15:15 Morphine Sulfate 2 mg Q30M PRN IV 05/09/25 15:15 Losartan Potassium 50 mg BID PO 05/09/25 22:00 05/13/25 09:08 50 MG Warfarin Sodium 5 mg DAILY PO 05/10/25 10:00 UNV Levothyroxine Sodium 150 mcg DAILY@0600 PO 05/10/25 06:00 05/13/25 06:22 150 MCG Pravastatin Sodium 80 mg HS PO 05/09/25 22:00 05/12/25 23:42 80 MG Acetaminophen/ Hydrocodone Bitart 1 tab QID PRN PO 05/09/25 15:45 05/13/25 06:22 1 TAB Warfarin Sodium RX PROTOCOL PER PHARMACY PO 05/09/25 16:15 Pantoprazole Sodium 40 mg DAILY@0600 PO 05/11/25 06:00 05/13/25 06:22 40 MG Cephalexin 500 mg TID PO 05/10/25 14:00 05/13/25 06:22 500 MG Clonidine HCl 0.2 mg Q6HP PRN PO 05/10/25 16:00 Hydromorphone HCl 1 mg Q3HPRN PRN IV 05/10/25 16:00 05/10/25 16:25 1 MG Metoprolol Tartrate 25 mg BID PO 05/11/25 22:00 05/12/25 23:51 25 MG Amiodarone HCl 200 mg DAILY PO 05/12/25 10:00 05/13/25 09:08 200 MG Examination: GENERAL:Abnormal, HEENT:Abnormal, LUNGS:Abnormal, CVS:Abnormal, ABDOMEN:Abnormal laboratory and microbiology Laboratory Tests 05/13/25 06:09 05/11/25 05:56 Test 05/11/25 05:56 Range/Units Serum Glucose 108 H 74-106 mg/dL Problem List/Assessment/Plan Problem List/Assessment/Plan afib htn HL cont losarta and hydralazine increased amio to 200 mg currently SR observe today consider bb 1 dose given cut metop to 12.5 mg bid cont amio 200 daiy cont coumadin, pt on it for 10 years, no need t o change at this time Plan discussed with: Patient Dietary Evaluation Review Comments: 1) Continue cardiac diet 2) Encourage optimal PO intake 3) Follow-up with cardiology 4) Continue to monitor I&O, labs, and skin integrity Expected Outcomes/Goals: 1) appetite and labs to improve 2) f/u in 3-5 days Date of Service: May 13, 2025 Billing Provider: NANCY ROGERS MD Common Visit Codes: NOT BILLABLE NANCY ROGERS MD May 13, 2025 12:44
[2025-05-13] MEDS: WARFARIN SODIUM 1 MG TAB PO ONE (18:21)
[2025-05-13] MEDS: METOPROLOL TARTRATE 25 MG TAB PO SCH (23:06)
[2025-05-14 01:00] VITALS: BP 154/66; PULSE 53; RESP 16; TEMP 97.8; O2SAT 98
[2025-05-14 05:00] VITALS: BP 159/77; PULSE 52; RESP 17; TEMP 97.9; O2SAT 98
[2025-05-14 06:51] LABS: Hematocrit 38.7 % (36.0-46.0); Hemoglobin 13.3 g/dL (12.2-16.2); Mean Corpuscular Hemoglobin 31.6 pg (28.0-32.0); Mean Corpuscular Volume 92.4 fL (80.0-100.0); Nucleated Red Blood Cells % 0.1 %
[2025-05-14 07:01] LABS: INR 1.8 (0.9-1.15); Partial Thromboplastin Time 34.0 SEC (24.5-34.5); Prothrombin Time 18.0 sec (9.3-11.8)
[2025-05-14 08:00] VITALS: PULSE 50
[2025-05-14 09:00] VITALS: BP 156/68; PULSE 54; RESP 16; TEMP 97.3; O2SAT 94
[2025-05-14] MEDS ORDERED: METO25TA5 PO (10:19)
--- NOTE | 2025-05-14 10:20 | DVHPN2 ---
Reviewed: Care Plan, H&P, Labs, Medications, Previous Orders, Radiology Changes from previous H/P or p: No Changes Cardiovascular: Palpitations Objective Vitals Vital Signs Date Time Temp Pulse Resp B/P (MAP) Pulse Ox O2 Delivery O2 Flow Rate FiO2 05/14/25 09:00 97.3 54 16 156/68 (97) 94 97.3 05/13/25 20:00 Room Air* 0 21 Intake/Output Intake and Output 05/14/25 07:00 Intake Total 1665 ml Balance 1665 ml Intake Oral 1665 ml # Voids 5 General Appearance: Alert, Oriented X3, Cooperative HEENT: Atraumatic Lungs: Clear to auscultation Cardiovascular: Normal S1, Normal S2, Other (Irregular) Abdomen: Normal bowel sounds, Soft Psych/Mental Status: Mental status NL Medications Current Medications Medications Dose Ordered Sig/Raul Route Start Time Stop Time Status Last Admin Dose Admin Ondansetron HCl 4 mg Q4HP PRN IV 05/09/25 15:15 05/10/25 18:30 4 MG Acetaminophen 650 mg Q6HP PRN PO 05/09/25 15:15 Nitroglycerin 0.4 mg Q5MINP PRN SL 05/09/25 15:15 Morphine Sulfate 2 mg Q30M PRN IV 05/09/25 15:15 Losartan Potassium 50 mg BID PO 05/09/25 22:00 05/13/25 23:07 50 MG Warfarin Sodium 5 mg DAILY PO 05/10/25 10:00 UNV Levothyroxine Sodium 150 mcg DAILY@0600 PO 05/10/25 06:00 05/14/25 05:39 150 MCG Pravastatin Sodium 80 mg HS PO 05/09/25 22:00 05/13/25 23:09 80 MG Acetaminophen/ Hydrocodone Bitart 1 tab QID PRN PO 05/09/25 15:45 05/13/25 23:25 1 TAB Warfarin Sodium RX PROTOCOL PER PHARMACY PO 05/09/25 16:15 Pantoprazole Sodium 40 mg DAILY@0600 PO 05/11/25 06:00 05/14/25 05:37 40 MG Cephalexin 500 mg TID PO 05/10/25 14:00 05/14/25 05:40 500 MG Clonidine HCl 0.2 mg Q6HP PRN PO 05/10/25 16:00 Hydromorphone HCl 1 mg Q3HPRN PRN IV 05/10/25 16:00 05/10/25 16:25 1 MG Amiodarone HCl 200 mg DAILY PO 05/12/25 10:00 05/13/25 09:08 200 MG Metoprolol Tartrate 12.5 mg BID PO 05/13/25 22:00 05/13/25 23:06 12.5 MG Laboratory Results Laboratory Tests 05/11/25 05:56 05/14/25 06:13 Coagulation Test 05/14/25 06:13 Prothrombin Time 18.0 sec (9.3-11.8) H Prothrombin Time INR 1.80 (0.9-1.15) H Activated Partial Thromboplast Time 34.0 SEC (24.5-34.5) Urinalysis Test 05/10/25 05:00 Urine Color Light-yellow (Yellow) Urine Clarity Clear (Clear) Urine pH 5.5 (5.0-9.0) Urine Specific [place] 1.021 (1.001-1.035) Urine Protein Negative (Negative) Urine Ketones Negative (Negative) Urine Blood Negative /uL (Negative) Urine Nitrite Negative (Negative) Urine Bilirubin Negative (Negative) Urine Urobilinogen Normal mg/dL (Negative) Urine Leukocyte Esterase 1+ /uL (Negative) Urine RBC 18 /hpf (0 - 4) Urine Microscopic WBC 12 /HPF (0-5) H Urine Squamous Epithelial Cells Few /hpf (<5) Urine Bacteria Few /hpf (None Seen) H Urine Glucose Normal mg/dL (Normal) Labs and/or images reviewed: Labs reviewed by me, Image(s) reviewed by me Assessment/Plan Assessment/Plan afib with RVR: On Coumadin, metoprolol tartrate reduced to 12.5 [address] b[address]i.d. by Dr. Morales., amiodarone 200 mg p.o. daily, cardiology consult by Dr. Morales appreciated htn: Losartan Cozaar HL: Lipitor Hypothyroidism: Synthroid Plan discussed with: Patient Date of Service: May 14, 2025 Billing Provider: GARO MACHADO MD Common Visit Codes: [id number] INP/OBS CARE(HIGH) GARO MACHADO MD May 14, 2025 10:20
--- NOTE | 2025-05-14 10:24 | DVHDS2 ---
Discharge Summary Date of Admission May 09, 2025 at 15:13 Date of Discharge: May 14, 2025 Admitting Diagnosis Palpitations Wounds: None Labs/Diagnostic Data: Laboratory Results Test 05/14/25 06:13 05/11/25 05:56 05/10/25 05:12 05/10/25 05:00 White Blood Count 6.6 10^3/uL (4.4-10.8) Red Blood Count 4.19 10^6/uL (4.0-5.20) Hemoglobin 13.3 g/dL (12.2-16.2) Hematocrit 38.7 % (36.0-46.0) Mean Corpuscular Volume 92.4 fL (80.0-100.0) Mean Corpuscular Hemoglobin 31.6 pg (28.0-32.0) Mean Corpuscular Hemoglobin Concent 34.2 g/dL (32.0-36.0) Red Cell Distribution Width 13.1 % (11.8-14.3) Platelet Count 176 10^3/uL (140-450) Mean Platelet Volume 7.9 fL (6.9-10.8) Neutrophils (%) (Auto) 70.5 % (37.0-80.0) Lymphocytes (%) (Auto) 11.2 % (10.0-50.0) Monocytes (%) (Auto) 13.7 % (0.0-12.0) Eosinophils (%) (Auto) 3.6 % (0.0-7.0) Basophils (%) (Auto) 1.0 % (0.0-2.0) Neutrophils # (Auto) 4.7 10 ^3/uL (1.6-8.6) Lymphocytes # (Auto) 0.7 10 ^3/uL (0.4-5.4) Monocytes # (Auto) 0.9 10 ^3/uL (0-1.3) Eosinophils # (Auto) 0.2 10 ^3/uL (0-0.8) Basophils # (Auto) 0.1 10 ^3/uL (0-0.2) Nucleated Red Blood Cells 0.1 % Prothrombin Time 18.0 sec (9.3-11.8) Prothrombin Time INR 1.80 (0.9-1.15) Activated Partial Thromboplast Time 34.0 SEC (24.5-34.5) Creatinine 1.20 mg/dL (0.550-1.02) Glomerular Filtration Rate Calc 44 mL/min (>90) Sodium Level 136 mmol/L (136-145) Potassium Level 4.3 mmol/L (3.5-5.1) Chloride Level 101 mmol/L (98-107) Carbon Dioxide Level 23 mmol/L (20-31) Anion Gap 12 (5-15) Blood Urea Nitrogen 20 mg/dL (9-23) BUN/Creatinine Ratio 20.8 (10.0-20.0) Serum Glucose 108 mg/dL (74-106) Calcium Level 10.2 mg/dL (8.7-10.4) Magnesium Level 1.7 mg/dL (1.6-2.6) Total Bilirubin 0.9 mg/dL (0.2-1.0) Aspartate Amino Transferase (AST) 28 U/L (13-40) Alanine Aminotransferase (ALT) 22 U/L (7-40) Alkaline Phosphatase 77 U/L (46-116) Total Protein 5.9 g/dL (5.7-8.2) Albumin 4.0 g/dL (3.2-4.8) Urine Color Light-yellow (Yellow) Urine Clarity Clear (Clear) Urine pH 5.5 (5.0-9.0) Urine Specific [place] 1.021 (1.001-1.035) Urine Protein Negative (Negative) Urine Ketones Negative (Negative) Urine Blood Negative /uL (Negative) Urine Nitrite Negative (Negative) Urine Bilirubin Negative (Negative) Urine Urobilinogen Normal mg/dL (Negative) Urine Leukocyte Esterase 1+ /uL (Negative) Urine RBC 18 /hpf (0 - 4) Urine Microscopic WBC 12 /HPF (0-5) Urine Squamous Epithelial Cells Few /hpf (<5) Urine Bacteria Few /hpf (None Seen) Urine Glucose Normal mg/dL (Normal) Test 05/09/25 06:30 D-Dimer, Quantitative 0.23 mg/L FEU (0.0-0.49) Hemoglobin A1c 5.5 % A1C (<5.7) Troponin I High Sensitivity < 3 ng/L (</=34) B-Type Natriuretic Peptide 340.56 pg/mL (0-100) Triglycerides Level 97 mg/dL (< 150) Cholesterol Level 139 mg/dL (< 200) LDL Cholesterol 70 mg/dL (< 100) HDL Cholesterol 57 mg/dL (40-59) Thyroid Stimulating Hormone (TSH) 0.91 uIU/mL (0.55-4.78) Free Thyroxine (T4) Calculated 1.78 ng/dL (0.89-1.76) Other Laboratory Tests 05/14/25 06:13 05/11/25 05:56 Brief Hx & Hospital Course: 84-year-old female with a history of chronic AFib on Coumadin more than 10 years history of hypertension hypercholesterolemia hypothyroidism came in for palpitations. Seen by her primary spa manager/esthetician Dr. Morales confused amiodarone two from 100 mg to 200 mg p.o. daily and started on metoprolol tartrate 12.5 mg p.o. b.i.d. she will continue losartan Cozaar and Lipitor and since which he has a at home. She also has a Coumadin at home. Patient is afebrile stable vital signs cleared for discharge by Cardiology. Prescription for metoprolol tartrate transmitted to the pharmacy. Reviewed all other home medications. Consults/Reason for consult Patient's primary spa manager/esthetician Dr. Morales Operations or Procedures None Condition at Discharge: Fair Final Diagnosis/Problems List afib with RVR: On Coumadin, metoprolol tartrate reduced to 12.5 [address] p.o. b.i.d. by Dr. Morales., amiodarone 200 mg p.o. daily, cardiology consult by Dr. Morales appreciated htn: Losartan Cozaar HL: Lipitor Hypothyroidism: Synthroid Discharge Disposition: Home Discharge Instruct/Medications Diet: Cardiac 2g Na,low cholest Activity: Light activity Follow Up/Referral: Follow up With your cardiology Dr. Morales in two weeks Follow up with your primary Dr in one week Resume all your previous home medications Amiodarone has been increased to 200 mg p.o. daily Medications: Metoprolol tartrate 12.5 mg p.o. b.i.d. Transmitted to pharmacy Scheduled Amiodarone Hcl (Amiodarone Hcl), 100 MG PO DAILY, (Reported) Levothyroxine Sodium (Levothyroxine Sodium), 1 TAB PO DAILY, (Reported) Losartan Potassium (Losartan Potassium), 1 TAB PO BID, (Reported) Metoprolol Tartrate (Metoprolol Tartrate), 0.5 TAB PO BID Warfarin Sodium (Warfarin Sodium), 1 TAB PO DAILY, (Reported) Scheduled PRN Hydralazine HCl (Hydralazine HCl), 1 TAB PO TID PRN, (Reported) Hydrocodone-Acetaminophen (Hydrocodone/Acetaminophen 7.5-325 mg), 1 TAB PO QID PRN, (Reported) Miscellaneous Medications Rosuvastatin Calcium (Crestor), 10 MG PO, (Reported) 39 (Time taken for discharge summary 39 minutes) Discharge Statement: "Patient was advised to return to the ER or call 911 if any headaches, dizziness, shortness of breath, chest pain, abdominal pain, bleeding, fevers, or worsening of medical condition. Patient was counseled about treatment plan, medications, possible side effects, patientverbalized understanding. All questions were answered to the best of my ability. This discharge took greater then 30 minutes in planning, reviewing documentation, counseling the patient, and discussing with other team members." ASSESSMENT ASSESSMENT Hospital Course Improved Assessment afib with RVR: On Coumadin, metoprolol tartrate reduced to 12.5 [address] b.i.d. by Dr. Morales., amiodarone 200 mg p.o. daily, cardiology consult by Dr. Morales appreciated htn: Losartan Cozaar HL: Lipitor Hypothyroidism: Synthroid Date of Service: May 14, 2025 Billing Provider: GARO MACHADO MD Common Visit Codes: [id number] DISCH DAY >30min GARO MACHADO MD May 14, 2025 10:24
[2025-05-14 13:00] VITALS: BP 130/69; PULSE 49; RESP 17; TEMP 97.6; O2SAT 97
--- NOTE | 2025-05-14 14:43 | ECG ---
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
[2025-05-14] MEDS ORDERED: WARFARIN SODIUM 2 MG TAB PO ONE (17:00)
--- NOTE | 2025-05-15 07:20 | ECG ---
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
== END 2025-05-14 15:30 | disposition home or self-care (01) | DRG 308 ==
LOC: ER 06:23 → OVERFLOW 15:13 → TELE-EAST 17:42
PROVIDERS: ADMIT Family Medicine; ATTEND Family Medicine
DX: I48.0 Paroxysmal atrial fibrillation (principal); I50.31 Acute diastolic (congestive) heart failure; N30.01 Acute cystitis with hematuria; I48.92 Unspecified atrial flutter; E03.9 Hypothyroidism, unspecified; I11.0 Hypertensive heart disease with heart failure; E78.00 Pure hypercholesterolemia, unspecified; H40.89 Other specified glaucoma; G89.29 Other chronic pain; I16.0 Hypertensive urgency; Z88.8 Allergy status to other drugs, medicaments and biological substances; Z79.899 Other long term (current) drug therapy; Z80.3 Family history of malignant neoplasm of breast; Z79.01 Long term (current) use of anticoagulants
CPT/HCPCS: 36415; 70450; 71045; 80048; 80053; 80061; 81001; 82565; 83036; 83735; 83880; 84439; 84443; 84484; 85025; 85379; 85610; 85730; 93005; 93306; 96374; G0378; J2405; J2470

== ENCOUNTER 2025-09-22 17:20 | Inpatient (IN) | payer OTHER ==
[~2025-09-22] VITALS: Ht 167.6 cm; Wt 74.2 kg
[~2025-09-22 17:20] MED LIST: AMIO200T33 PO; HYDR-4069 PO; HYDR25TA87 PO; LEVO150T10 PO; LOSA-534 PO; METO25TA5 PO; ROSU10TA16 PO; WARF-66 PO
[2025-09-22 17:26] VITALS: PULSE 88; RESP 15; O2SAT 97
[2025-09-22 18:03] LABS: Hematocrit 41.3 % (36.0-46.0); Hemoglobin 13.7 g/dL (12.2-16.2); Mean Corpuscular Hemoglobin 31.1 pg (28.0-32.0); Mean Corpuscular Volume 93.7 fL (80.0-100.0); Nucleated Red Blood Cells % 0.1 %
[2025-09-22] MEDS: ACETAMINOPHEN 325 MG TAB PO ONE (18:11)
--- NOTE | 2025-09-22 18:12 | DVH ---
CHEST RADIOGRAPH Indication: palpitations Technique: Single frontal view of the chest was obtained COMPARISON: XY CHEST PORTABLE on DOS: 05/09/25, XY CHEST TWO VIEWS ROUTINE on DOS: 11/14/24 FINDINGS: Lines and Tubes: None Lungs: Clear Pleura: No effusion. No pneumothorax. Cardiomediastinal contours: Unremarkable Bones: Unremarkable IMPRESSION: No acute disease.
[2025-09-22] MEDS ORDERED: ACETAMINOPHEN 325 MG TAB PO ONE (18:15)
[2025-09-22 18:17] LABS: Potassium 4.0 mmol/L (3.5-5.1); Sodium 143 mmol/L (136-145)
[2025-09-22 18:18] LABS: Anion Gap 11 (5-15); Calcium 9.0 mg/dL (8.7-10.4); Carbon Dioxide 23 mmol/L (20-31)
[2025-09-22 18:19] LABS: Chloride 109 mmol/L (98-107)
[2025-09-22 18:23] LABS: BUN/Creatinine Ratio 19.8 (10.0-20.0); Blood Urea Nitrogen 21 mg/dL (9-23); Glucose 97 mg/dL (74-106)
--- NOTE | 2025-09-22 18:43 | ECG ---
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
--- NOTE | 2025-09-22 18:55 | ED.PDOC ---
HPI Comments HPI: 85 y/o F, with a history of AFib, is BIBA for c/c of palpitations. Patient is always in AFib but states on her rate, usually, being in control. Today, it just lasted at a high rate for more than 20 minutes,hence why she called EMS. She was on a Holter monitor since the beginning of the month and turned it in, today. Past Medical History: AFib, history of Coumadin use, hypothyroidism, hypertension, chronic back pain-on [place], glaucoma Past Surgical History: Back surgery Social History: Medications: Allergies: Discharged summary for previous admission for palpitations Date of admission: May 09, 2025 Date of discharge: May 14, 2025 Final Diagnosis/Problems List afib with RVR: On Coumadin, metoprolol tartrate reduced to 12.5 [address] b.i.d. by Dr. Morales., amiodarone 200 mg p.o. daily, cardiology consult by Dr. Morales appreciated htn: Losartan Cozaar HL: Lipitor Hypothyroidism: Synthroid BROWN: HPI: Poor Historian. REVIEW OF SYSTEMS: CONSTITUTIONAL: Denies acute: fever, diaphoresis, chills, generalized weakness. HEAD: Denies acute: headache, photophobia Eyes: Denies acute: Double vision, vision loss, eye pain, eye discharge. EARS: Denies acute: tinnitus, hearing loss, ear discharge, ear pain, THROAT: Denies acute: sore throat, swelling, difficulty swallowing , pain with swallowing, change in voice. NECK: Denies acute: neck pain, neck swelling, stiff neck. HEART: Denies acute : chest pain, LUNGS: Denies acute: SOB, wheezing, cough, hemoptysis ABDOMEN: Denies acute: abdominal pain, Nausea, Vomiting, diarrhea, melena , hematemesis, hematochezia SKIN: Denies acute: rash, redness, lesions, itchiness. EXTREMITIES: Denies acute: calf pain, numbness, tingling, weakness, denies pain in extremity. Denies acute: Low back pain. Neuro: Denies acute: focal neurological deficit, motor or sensory focal neurological deficit, tremors, seizure like activity, confusion, dizziness, change in mental status, loss of bowel or bladder function, cauda equina like symptoms. : Denies acute: dysuria, hematuria, flank pain, increase in urinary frequency. PSYCH: Denies acute: hallucination, suicidal ideation, homicidal ideation. FEMALE: Denies acute: abnormal vaginal bleeding, foul odor, unusual discharge. PHYSICAL EXAM: General: ----no----acute distress, awake and alert. Head: normocephalic, atraumatic. No raccoon's eyes, no ocampo sign. Neck: supple, trachea is midline, no swelling. Throat: Normal phonation. Eyes:, no erythema, no purulent discharge, no proptosis, no icterus. Heart: Irregular rate and rhythm consistent with atrial fibrillation with RVR, no significant murmur appreciated. Lungs: no apparent respiratory distress, Able to speak in full sentences. No wheezing, no rhonchi, no crackles. No stridors Clear to auscultation bilaterally. Abdomen: non tender to palpation, non distended, soft, no guarding, no rebound, + bowel sounds. Neuro: Awake, Alert, oriented to name, self, situation, follows commands GCS=15. Speech is normal. Skin: no petechia, no purpura, no cyanosis, non-pale, not jaundice. Lower extremities: --trace b/l- Pitting edema no deformity, no focal swelling, no calf TTP. Makes eye contact. moves all four extremities. ED COURSE: DISCLAIMER: This medical document was created using an electronic medical record system with voice recognition software and computerized dictation system. Although this document has been carefully reviewed, there might still be some phonetic and typographical errors. Occasional wrong-word or "sound-alike" substitutions may have occurred due to the inherent limitations of voice recognition software. These areas are purely typographical due to imperfections of the software programs and do not reflect any compromise in the patient's medical care. Please read the chart carefully and recognize, using context, where these substitutions have occurred. Chief Complaint: Palpitations Time Seen by MD: 18:30 Reviewed Notes: Allergies Allergies: Coded Allergies: Atorvastatin (Verified Allergy, Unknown, 05/09/25) Home Meds Active Scripts Metoprolol Tartrate (Metoprolol Tartrate) 25 Mg Tab, 0.5 TAB PO BID, #180 TAB 1 Refill Prov:GARO MACHADO MD 05/14/25 Reported Medications Amiodarone Hcl (Amiodarone Hcl) 200 Mg Tab, 100 MG PO DAILY for 30 Days 05/09/25 Rosuvastatin Calcium (Crestor) 10 Mg Tab, 10 MG PO, TAB 05/09/25 Hydrocodone-Acetaminophen (Hydrocodone/Acetaminophen 7.5-325 mg) 1 Tab Tab, 1 TAB PO QID PRN 05/09/25 Warfarin Sodium (Warfarin Sodium) 5 Mg Tab, 1 TAB PO DAILY 05/09/25 Hydralazine HCl (Hydralazine HCl) 25 Mg Tab, 1 TAB PO TID PRN 05/09/25 Losartan Potassium (Losartan Potassium) 50 Mg Tab, 1 TAB PO BID 05/09/25 Levothyroxine Sodium (Levothyroxine Sodium) 150 Mcg Tab, 1 TAB PO DAILY 05/09/25 Information Source: Patient, Emergency Med Personnel Mode of Arrival: EMS Past Medical History PAST MEDICAL HISTORY: AFIB, High Lipids, HTN (On hydralazine and losartan), Thyroid (Hypothyroidism-on levothyroxine) Past Medical History (Other): Glaucoma Chronic back pain-on [place] History of Coumadin use Surgical History (Other): Back surgery 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 Was a procedure done?: No CP Differential Dx Differential Diagnosis: A-fib, A-Flutter, Angina, Anxiety / Panic Attack, Atrial Dysrhythmia, Digoxin Toxicity, Electrolyte Disorder, Heart Failure, Hyperthyroidism, Hyperventilation, Hypoxia, MAT, [place], PAC's, Pacemaker Malfunction, PSVT, Pulmonary Embolus, PVC's, Renal Failure, Sinus Tachycardia, Torsades De Pointes, Ventricular Dysrhythmia, V-Fib, V-Tach, WPW X-Ray, Labs, Meds, VS Vital Signs Date Time Temp Pulse Resp B/P (MAP) Pulse Ox O2 Delivery O2 Flow Rate FiO2 09/22/25 20:59 93 158/97 09/22/25 20:35 85 09/22/25 20:00 94 11/15/25 20:00 92 13 158/90 (112) 96 09/22/25 19:45 13 97 Room Air* 0 21 09/22/25 19:15 113 14 177/90 (119) 97 09/22/25 19:15 113 177/90 09/22/25 18:55 101 09/22/25 18:27 101 09/22/25 17:34 97.4 120 18 167/66 98 97.4 09/22/25 17:28 109 09/22/25 17:26 88 09/22/25 17:26 97.9 88 15 165/83 (110) 97 97.9 09/22/25 17:26 88 15 97 Room Air* 0 21 Lab Test 09/22/25 21:00 09/22/25 18:34 09/22/25 17:49 09/22/25 17:43 Range/Units Troponin I High Sensitivity < 3 L < 3 L < 3 L </=34 ng/L White Blood Count 8.7 4.4-10.8 10^3/uL Red Blood Count 4.40 4.0-5.20 10^6/uL Hemoglobin 13.7 12.2-16.2 g/dL Hematocrit 41.3 36.0-46.0 % Mean Corpuscular Volume 93.7 80.0-100.0 fL Mean Corpuscular Hemoglobin 31.1 28.0-32.0 pg Mean Corpuscular Hemoglobin Concent 33.2 32.0-36.0 g/dL Red Cell Distribution Width 14.1 11.8-14.3 % Platelet Count 218 140-450 10^3/uL Mean Platelet Volume 7.9 6.9-10.8 fL Neutrophils (%) (Auto) 75.2 37.0-80.0 % Lymphocytes (%) (Auto) 13.7 10.0-50.0 % Monocytes (%) (Auto) 9.2 0.0-12.0 % Eosinophils (%) (Auto) 0.9 0.0-7.0 % Basophils (%) (Auto) 1.0 0.0-2.0 % Neutrophils # (Auto) 6.5 1.6-8.6 10 ^3/uL Lymphocytes # (Auto) 1.2 0.4-5.4 10 ^3/uL Monocytes # (Auto) 0.8 0-1.3 10 ^3/uL Eosinophils # (Auto) 0.1 0-0.8 10 ^3/uL Basophils # (Auto) 0.1 0-0.2 10 ^3/uL Nucleated Red Blood Cells 0.1 % Sodium Level 143 136-145 mmol/L Potassium Level 4.0 3.5-5.1 mmol/L Chloride Level 109 H 98-107 mmol/L Carbon Dioxide Level 23 20-31 mmol/L Anion Gap 11 5-15 Blood Urea Nitrogen 21 9-23 mg/dL Creatinine 1.06 H 0.550-1.02 mg/dL Glomerular Filtration Rate Calc 51 >90 mL/min BUN/Creatinine Ratio 19.8 10.0-20.0 Serum Glucose 97 74-106 mg/dL Calcium Level 9.0 8.7-10.4 mg/dL Magnesium Level 1.8 1.6-2.6 mg/dL B-Type Natriuretic Peptide 151.49 0-100 pg/mL Urine Color Colorless Yellow Urine Clarity Clear Clear Urine pH 5.5 5.0-9.0 Urine Specific [place] 1.007 1.001-1.035 Urine Protein Negative Negative Urine Ketones Negative Negative Urine Blood Negative Negative /uL Urine Nitrite Negative Negative Urine Bilirubin Negative Negative Urine Urobilinogen Normal Negative mg/dL Urine Leukocyte Esterase Negative Negative /uL Urine RBC <1 0 - 4 /hpf Urine Microscopic WBC < 1 0-5 /HPF Urine Squamous Epithelial Cells None seen <5 /hpf Urine Bacteria None seen None Seen /hpf Urine Glucose Normal Normal mg/dL Current Medications Medications (Trade) Dose Ordered Sig/Raul Route Start Time Stop Time Status Last Admin Acetaminophen (Tylenol Tablet) 650 mg ONCE ONCE PO 09/22/25 18:15 09/22/25 18:16 DC 09/22/25 18:11 Metoprolol Tartrate (Lopressor) 5 mg ONCE ONCE IV 09/22/25 18:45 09/22/25 18:46 DC 09/22/25 19:[address] [address] Ph: [phone] DIAGNOSTIC IMAGING Diagnostic Imaging Report : [id number] Signed PATIENT: SAKSHI BROWN ACCT: [id number] UNIT: [id number] : 1940 LOC: ER ROOM / BED: / AGE / SEX: 85 / F ADM STATUS: REG ER SERVICE 1741 ORDERING PHYSICIAN: LOBO ANDERSON MD PROCEDURE(s): CXRP - CHEST PORTABLE REASON: palpitations ORDER NUMBER(s): [id number], ACCESSION NUMBER(s): [id number] CHEST RADIOGRAPH Indication: palpitations Technique: Single frontal view of the chest was obtained COMPARISON: XY CHEST PORTABLE on DOS: 05/09/25, XY CHEST TWO VIEWS ROUTINE on DOS: 11/14/24 FINDINGS: Lines and Tubes: None Lungs: Clear Pleura: No effusion. No pneumothorax. Cardiomediastinal contours: Unremarkable Bones: Unremarkable IMPRESSION: No acute disease. ATED BY: EDWIN ANDERSON MD DICTATED DATE/TIME: 09/22/251809 SIGNED BY: EDWIN ANDERSON MD SIGNED DATE/TIME: 09/22/251809 CC: Time of 1ST Reevaluation: 18:30 Reevaluation 1ST: Unchanged Time of 2ND Reevaluation: 00:00 Reevaluation 2ND: Improved Patient Education/Counseling: Diagnosis, Treatment Family Education/Counseling: No Family Present Comments MDM: patient presented with the above HPI.--cardiac---workup was initiated. patient was found with the above mentioned diagnosis. the following medications were ordered: please refer to order lists of meds and tests obtained by myself Dr. Capellan. Patient ED course and VS have been stabilized. Patient has been reassessed in the ED and remained in a stable condition. Pertinent incidental findings were discussed with the patient and/or family. Patient/family voices understanding and is agreeable with plan. Patient has been observed in the ED adequate length of time to insure improvement/stability. Escalation of care considered: Consideration of escalation to observation or admission Patient was given Lopressor for rate control. Patient was ADMITTED to the medicine team for further evaluation and treatment of their presentation. All the reports of any imaging studies that were ordered by myself were reviewed by myself. SEPSIS Sepsis Screen Date sepsis recognized/suspect: Sep 22, 2025 Time Sepsis recognized/suspect: 1721 Recent Procedure: No On Antibiotic Therapy: No Respiratory Rate >20: No Heart Rate >90: Yes Temp<36 C (96.8 F) or >38.3 C: No SBP <90 or MAP <65 mmHG: No New Acute Mental Status Change: No Is the patient on CPAP, BIPAP,: No Physician Orders Chest Portable (09/22/25 17:41) Electrocardigram (09/22/25 18:41) Electrocardigram (09/22/25 20:41) Vital Signs Date Time Temp Pulse Resp B/P (MAP) Pulse Ox O2 Delivery O2 Flow Rate FiO2 09/22/25 20:59 93 158/97 09/22/25 20:35 85 09/22/25 20:00 94 09/22/25 20:00 92 13 158/90 (112) 96 09/22/25 19:45 13 97 Room Air* 0 21 09/22/25 19:15 113 14 177/90 (119) 97 09/22/25 19:15 113 177/90 09/22/25 18:55 101 09/22/25 18:27 101 09/22/25 17:34 97.4 120 18 167/66 98 97.4 09/22/25 17:28 109 09/22/25 17:26 88 09/22/25 17:26 97.9 88 15 165/83 (110) 97 97.9 09/22/25 17:26 88 15 97 Room Air* 0 21 Laboratory Tests Test 09/22/25 17:49 White Blood Count 8.7 10^3/uL (4.4-10.8) Medications Medications Dose Ordered Sig/Raul Route Start Time Stop Time Status Last Admin Dose Admin Acetaminophen 650 mg ONCE ONCE PO 09/22/25 18:15 09/22/25 18:16 DC 09/22/25 18:11 Metoprolol Tartrate 5 mg ONCE ONCE IV 09/22/25 18:45 09/22/25 18:46 DC 09/22/25 19:15 Departure 1 Departure Time of Disposition: 19:38 Impression: Primary Impression: Atrial fibrillation with RVR Disposition: ADMITTED INPATIENT Admit to: Tele Condition: Guarded Discharged With: Self Critical Care Note Critical Care Time?: Yes (45 min-critical care time only) Heart Score Heart Score: Heart Score Response (Comments) Value History Slightly Suspicious 0 EKG Repolarization Disturb 1 Age >65 2 Risk Factors >3 or Hx ASHD 2 Troponin Normal limit 0 Total 5 I personally scribed for NICOLE CAPELLAN DO ([email or web address]) on 09/22/25 at 18:55. Electronically submitted by Everett Anderson ([email or web address]). I personally scribed for NICOLE CAPELLAN DO ([email or web address]) on 09/22/25 at 19:07. Electronically submitted by Everett Anderson ([email or web address]). I personally scribed for NICOLE CAPELLAN DO ([email or web address]) on 09/22/25 at 19:46. Electronically submitted by Everett Anderson ([email or web address]). I personally scribed for NICOLE CAPELLAN DO ([email or web address]) on 09/23/25 at 04:39. Electronically submitted by Everett Anderson ([email or web address]). NICOLE CAPELLAN DO Sep 22, 2025 18:55
[2025-09-22] MEDS: METOPROLOL TARTRATE 1MG/1ML-5ML VIAL IV ONE (19:15)
[2025-09-22 19:29] LABS: Urine Protein, UAD Negative (Negative)
[2025-09-22 19:45] VITALS: RESP 13; O2SAT 97
--- NOTE | 2025-09-22 21:41 | DVHHP2 ---
History of Present Illness Reason for Visit: Palpitations History of Present Illness The patient is a 85-year-old female with past medical history of AFib, hypertension, hyperlipidemia, hypothyroidism, and chronic back pain who presented to [facility] ED with complaint of palpitations. Patient reports that she has been feeling her heart beating fast, always in AFib, but state on her rate usually being in control. Patient states symptoms pr ogressively get worse that prompted her to call EMS. She was on a Holter monitor since the beginning of the month and turned it in today. Patient was seen and evaluated in the ED, laboratory data shows WBC 8.7, platelets 218, sodium 143, potassium 4.0, BUN 21, creatinine 1.06, GFR 51, glucose 97, calcium 9.0, magnesium 1.8, BNP 151.49, troponin < 3, blood pressure 142/86, heart rate 142 trending down to 86, temperature 97.9 F, O2 saturation 98% on room air. Chest x-ray show no acute disease. Please see medication orders section in the computer. On my assessment, patient denies chest pain, no headache, dizziness, diaphoresis, shortness of breaths, no nausea, vomiting, fever, no chills. Patient was admitted for further evaluation and medical management. Past Medical History AFIB {Coumadin use}, High Lipids, HTN Hypothyroidism, Glaucoma, Chronic back pain Past Surgical History Back surgery Family History Reviewed, noncontributory to the management of this case. Past Social History The patient lives at home, denies smoking, alcohol or illicit drugs abuse. Review of Systems Constitutional: Yes: Weakness; No: Fever, Chills, Sweats, Malaise, Other Eyes: No: Pain, Vision change, Conjunctivae inflammation, Eyelid inflammation, Other, Redness ENT: No: Ear pain, Ear discharge, Nose pain, Nose discharge, Nose congestion, Mouth pain, Mouth swelling, Throat pain, Throat swelling, Other Respiratory: No: Cough, Dry, Shortness of breath, SOB with excertion, Wheezing, Hemoptysis, Pleuritic Pain, Sputum, Wheezing, Other Cardiovascular: Palpitations; No: Chest Pain, Orthopnea, Paroxysmal Noc. Dyspnea, Edema, Lt Headedness, Other Gastrointestinal: No: Nausea, Vomiting, Abdominal Pain, Diarrhea, Constipation, Melena, Hematochezia, Other Genitourinary: No Dysuria, No Frequency, No Incontinence, No Hematuria, No Retention, No Other Musculoskeletal: No: other, neck pain, shoulder pain, arm pain, back pain, hand pain, leg pain, foot pain Skin: No: Rash, Lesions, Jaundice, Bruising, Other Neurological: No: Weakness, Numbness, Incoordination, Change in speech, Confusion, Seizures, Other Allergies: Coded Allergies: Atorvastatin (Verified Allergy, Unknown, 05/09/25) Exam Vital Signs Vital Signs Date Time Temp Pulse Resp B/P (MAP) Pulse Ox O2 Delivery O2 Flow Rate FiO2 09/22/25 20:59 93 158/97 09/22/25 20:00 13 96 09/22/25 19:45 Room Air* 0 21 09/22/25 17:34 97.4 97.4 General Appearance: Alert, Oriented X3, Cooperative, No acute distress HEENT: Atraumatic, PERRLA, EOMI, Mucous membr. moist/pink Respiratory: Normal air movement Cardiovascular: Normal S1, Normal S2, No murmurs, Other (Irregular rate) Abdominal: Normal bowel sounds, Soft, No tenderness, No hepatospenomegaly, No masses Extremities: No clubbing, No cyanosis, No edema, Normal pulses, No tenderness/swelling Skin: No rashes, No breakdown, No significant lesion Neuro: Normal speech, Normal tone, Sensation intact, Cranial nerves 3-12 NL, Reflexes 2+, Other (Generalized weakness) Psych/Mental Status: Mental status NL, Mood NL Labs/Xrays Labs Test 09/22/25 21:00 09/22/25 17:49 09/22/25 17:43 Range/Units White Blood Count 8.7 4.4-10.8 10^3/uL Red Blood Count 4.40 4.0-5.20 10^6/uL Hemoglobin 13.7 12.2-16.2 g/dL Hematocrit 41.3 36.0-46.0 % Mean Corpuscular Volume 93.7 80.0-100.0 fL Mean Corpuscular Hemoglobin 31.1 28.0-32.0 pg Mean Corpuscular Hemoglobin Concent 33.2 32.0-36.0 g/dL Red Cell Distribution Width 14.1 11.8-14.3 % Platelet Count 218 140-450 10^3/uL Mean Platelet Volume 7.9 6.9-10.8 fL Neutrophils (%) (Auto) 75.2 37.0-80.0 % Lymphocytes (%) (Auto) 13.7 10.0-50.0 % Monocytes (%) (Auto) 9.2 0.0-12.0 % Eosinophils (%) (Auto) 0.9 0.0-7.0 % Basophils (%) (Auto) 1.0 0.0-2.0 % Neutrophils # (Auto) 6.5 1.6-8.6 10 ^3/uL Lymphocytes # (Auto) 1.2 0.4-5.4 10 ^3/uL Monocytes # (Auto) 0.8 0-1.3 10 ^3/uL Eosinophils # (Auto) 0.1 0-0.8 10 ^3/uL Basophils # (Auto) 0.1 0-0.2 10 ^3/uL Nucleated Red Blood Cells 0.1 % Sodium Level 143 136-145 mmol/L Potassium Level 4.0 3.5-5.1 mmol/L Chloride Level 109 H 98-107 mmol/L Carbon Dioxide Level 23 20-31 mmol/L Anion Gap 11 5-15 Blood Urea Nitrogen 21 9-23 mg/dL Creatinine 1.06 H 0.550-1.02 mg/dL Glomerular Filtration Rate Calc 51 >90 mL/min BUN/Creatinine Ratio 19.8 10.0-20.0 Serum Glucose 97 74-106 mg/dL Calcium Level 9.0 8.7-10.4 mg/dL Magnesium Level 1.8 1.6-2.6 mg/dL B-Type Natriuretic Peptide 151.49 0-100 pg/mL Urine Color Colorless Yellow Urine Clarity Clear Clear Urine pH 5.5 5.0-9.0 Urine Specific [place] 1.007 1.001-1.035 Urine Protein Negative Negative Urine Ketones Negative Negative Urine Blood Negative Negative /uL Urine Nitrite Negative Negative Urine Bilirubin Negative Negative Urine Urobilinogen Normal Negative mg/dL Urine Leukocyte Esterase Negative Negative /uL Urine RBC <1 0 - 4 /hpf Urine Microscopic WBC < 1 0-5 /HPF Urine Squamous Epithelial Cells None seen <5 /hpf Urine Bacteria None seen None Seen /hpf Urine Glucose Normal Normal mg/dL PATIENT: SAKSHI BROWN ACCT: [id number] UNIT: [id number] : 1940 LOC: ER ROOM / BED: / AGE / SEX: 85 / F ADM STATUS: REG ER SERVICE 40 ORDERING PHYSICIAN: LOBO ANDERSON MD PROCEDURE(s): CXRP - CHEST PORTABLE REASON: palpitations ORDER NUMBER(s): [id number], ACCESSION NUMBER(s): [id number] CHEST RADIOGRAPH Indication: palpitations Technique: Single frontal view of the chest was obtained COMPARISON: XY CHEST PORTABLE on DOS: 05/09/25, XY CHEST TWO VIEWS ROUTINE on DOS: 11/14/24 FINDINGS: Lines and Tubes: None Lungs: Clear Pleura: No effusion. No pneumothorax. Cardiomediastinal contours: Unremarkable Bones: Unremarkable IMPRESSION: No acute disease. SEPSIS Sepsis Screen Date sepsis recognized/suspect: Sep 22, 2025 Time Sepsis recognized/suspect: 1721 Recent Procedure: No On Antibiotic Therapy: No Respiratory Rate >20: No Heart Rate >90: Yes Temp<36 C (96.8 F) or >38.3 C: No SBP <90 or MAP <65 mmHG: No New Acute Mental Status Change: No Is the patient on CPAP, BIPAP,: No Physician Orders Chest Portable (09/22/25 17:41) Troponin-I Hs (09/22/25 20:41) Electrocardigram (09/22/25 18:41) Electrocardigram (09/22/25 20:41) Warfarin Per Rx Protocol (Coumadin Per R (09/22/25 21:45) Amiodarone Tablet (Cordarone Tablet) (09/22/25 22:00) Clonidine Hcl Tablet (Catapres Tablet) (09/22/25 21:45) Losartan Tablet (Cozaar Tablet) (09/23/25 10:00) Levothyroxine Tablet (Synthroid Tablet) (09/23/25 06:00) Thyroid Stimulating Hormone (09/23/25 04:00) * Cardiology Consult (09/22/25 21:31) Admit (09/22/25 21:31) Allergies (09/22/25 21:31) Code Status (09/22/25 21:31) Sodium Chloride Lock (Saline Lock Ns) (09/22/25 22:00) Oxygen Per Hour (09/22/25 21:31) Hydrocodone-Acet 5/325mg Tab ([place] (09/22/25 21:45) Ondansetron Hcl (Zofran) (09/22/25 21:45) Docusate Sodium Capsule (Colace Capsule) (09/22/25 21:45) Fall Risk Precautions In Place QSHIFT (09/22/25 21:31) Complete Blood Count (09/23/25 04:00) Comprehensive Metabolic Panel (09/23/25 04:00) Cardiac Diet-2gna,Lofat,Lochol (09/23/25 Breakfast) Condition: Serious (09/22/25 21:31) Acetaminophen Tablet (Tylenol Tablet) (09/22/25 21:45) Maintain Bed Rest (09/22/25:31) Sequential Compression Device (09/22/25 ) Nitroglycerin Sublingual (Ntrostat Subli (09/22/25 21:45) Morphine Sulfate Injection (09/22/25 21:45) Stat Ekg For Chest Pain (09/22/25:31) Notify Md Of Changes From Base (09/22/25 21:31) Beater Operator For 24 Hours (09/22/25 21:31) Emergency Dysrhythmia Protocol (09/22/25 21:) Rhythm Strips Once Every Shift (09/22/25:31) Oxygen By Nasal Cannula (09/22/25:31) Vital Signs Date Time Temp Pulse Resp B/P (MAP) Pulse Ox O2 Delivery O2 Flow Rate FiO2 09/22/25 20:59 93 158/97 09/22/25 20:35 85 09/22/25 20:00 94 09/22/25 20:00 92 13 158/90 (112) 96 09/22/25 19:45 13 97 Room Air* 0 21 09/22/25 19:15 113 14 177/90 (119) 97 09/22/25 19:15 113 177/90 09/22/25 18:55 101 09/22/25 18:27 101 09/22/25 17:34 97.4 120 18 167/66 98 97.4 09/22/25 17:28 109 09/22/25 17:26 88 09/22/25 17:26 97.9 88 15 165/83 (110) 97 97.9 09/22/25 17:26 88 15 97 Room Air* 0 21 Laboratory Tests Test 09/22/25 17:49 White Blood Count 8.7 10^3/uL (4.4-10.8) Medications Medications Dose Ordered Sig/Raul Route Start Time Stop Time Status Last Admin Dose Admin Acetaminophen 650 mg ONCE ONCE PO 09/22/25 18:15 09/22/25 18:16 DC 09/22/25 18:11 650 MG Metoprolol Tartrate 5 mg ONCE ONCE IV 09/22/25 18:45 09/22/25 18:46 DC 09/22/25 19:15 5 MG Assessment/Plan Assessment/Plan Atrial fibrillation with RVR Generalized weakness Plan 1. Admit to telemetry unit 2. Breathing treatment 3. Pain control management 4. Management of fluids and electrolytes 5. Consultation for Cardiology 6. Diagnostic tests-chest x-ray 7. DVT prophylaxis -on Coumadin 8. Repeat labs CBC, CMP in a.m. 9. Continue with current medical management 10. Treatment plan discussed with patient and RN. Patient verbalized understanding. Plan discussed with: Patient, Other (RN) My Orders Orders - WADE ANAND DNP Procedure Category Date Status Time Warfarin Per Rx PHA 09/22/25 Transmitted Protocol (Coumadin 21:45 Amiodarone Tablet PHA 09/22/25 Transmitted (Cordarone Tablet) 22:00 Clonidine Hcl Tablet PHA 09/22/25 Transmitted (Catapres Tablet) 21:45 Losartan Tablet PHA 09/23/25 Transmitted (Cozaar Tablet) 10:00 Levothyroxine Tablet PHA 09/23/25 Transmitted (Synthroid Tablet) 06:00 Thyroid Stimulating LAB 09/23/25 Verified Hormone 04:00 * Cardiology Consult CONS 09/22/25 Transmitted 21:31 Admit ADMIT 09/22/25 Transmitted 21:31 Allergies MIGDALIA 09/22/25 Transmitted 21:31 Code Status CODE 09/22/25 Transmitted 21:31 Sodium Chloride Lock PHA 09/22/25 Transmitted (Saline Lock Ns) 22:00 Oxygen Per Hour RT 09/22/25 Transmitted 21:31 Hydrocodone-Acet PHA 09/22/25 Transmitted 5/325mg Tab ([place] 21:45 Ondansetron Hcl PHA 09/22/25 Transmitted (Zofran) 21:45 Docusate Sodium PHA 09/22/25 Transmitted Capsule (Colace 21:45 Fall Risk Precautions MIGDALIA 09/22/[address] 21:31 Complete Blood Count LAB 09/23/25 Verified 04:00 Comprehensive LAB 09/23/25 Verified Metabolic Panel 04:00 Cardiac DIET 09/23/25 Transmitted Diet-2gna,Lofat,Lochol Breakfast Condition: Serious [facility] 09/22/25 Transmitted 21:31 Acetaminophen Tablet [facility] 09/22/25 Transmitted (Tylenol Tablet) 21:45 Maintain Bed Rest [facility] 09/22/25 Transmitted 21:31 Sequential [facility] 09/22/25 Transmitted Compression Device Nitroglycerin [facility] 09/22/25 Transmitted Sublingual (Ntrostat 21:45 Morphine Sulfate [facility] 09/22/25 Transmitted Injection 21:45 Stat Ekg For Chest [facility] 09/22/25 Transmitted Pain 21:31 Notify Md Of Changes [facility] 09/22/25 Transmitted From Base 21:31 Beater Operator For [facility] 09/22/25 Transmitted 24 Hours 21:31 Emergency Dysrhythmia [facility] 09/22/25 Transmitted Protocol 21:31 Rhythm Strips Once [facility] 09/22/25 Transmitted Every Shift 21:31 Oxygen By Nasal RT 09/22/25 Transmitted Cannula 21:31 Problem List: (1) Atrial fibrillation with RVR (2) Generalized weakness Date of Service: Sep 22, 2025 Billing Provider: WADE ANAND DNP Common Visit Codes: [id number] INP/OBS CARE (HIGH) WADE ANAND DNP Sep 22, 2025 21:41
[2025-09-22] MEDS ORDERED: ONDANSETRON HCL 4 MG/2 ML VIAL IV PRN (21:45)
[2025-09-22] MEDS ORDERED: DOCUSATE SOD 100 MG CAP PO PRN (21:45)
[2025-09-22] MEDS ORDERED: MORPHINE SULFATE INJ 2 MG/ml SYRG IV PRN (21:45)
[2025-09-22] MEDS ORDERED: NITROGLYCERIN 0.4 MG SL TAB SL PRN (21:45)
[2025-09-22] MEDS: SODIUM CHLOR 0.9% PF (SALINE LOCK) 10ML VIAL/SYR IV SCH (22:23)
[2025-09-22] MEDS: AMIODARONE HCL 200 MG TAB PO SCH (22:44)
[2025-09-23 03:00] VITALS: PULSE 74; RESP 17; O2SAT 93
[2025-09-23 05:32] LABS: Hematocrit 38.3 % (36.0-46.0); Hemoglobin 12.9 g/dL (12.2-16.2); Mean Corpuscular Hemoglobin 31.4 pg (28.0-32.0); Mean Corpuscular Volume 93.1 fL (80.0-100.0); Nucleated Red Blood Cells % 0.1 %
[2025-09-23 05:54] LABS: Alanine Aminotransferase 17 U/L (7-40); Albumin 3.7 g/dL (3.2-4.8); Alkaline Phosphatase 86 U/L (46-116); Anion Gap 10 (5-15); BUN/Creatinine Ratio 15.5 (10.0-20.0); Blood Urea Nitrogen 16 mg/dL (9-23); Calcium 8.8 mg/dL (8.7-10.4); Carbon Dioxide 23 mmol/L (20-31); Glucose 105 mg/dL (74-106); Magnesium 2.0 mg/dL (1.6-2.6); Potassium 3.8 mmol/L (3.5-5.1); Sodium 143 mmol/L (136-145); Total Protein 5.9 g/dL (5.7-8.2)
[2025-09-23 05:55] LABS: Bilirubin, Total 1.0 mg/dL (0.2-1.0)
[2025-09-23 06:03] LABS: Chloride 110 mmol/L (98-107)
[2025-09-23] MEDS: LEVOTHYROXINE SODIUM 50 MCG TAB PO SCH (06:21)
--- NOTE | 2025-09-23 06:26 | ECG ---
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
[2025-09-23 07:49] LABS: INR 2.47 (0.9-1.15); Partial Thromboplastin Time 38.7 SEC (24.5-34.5); Prothrombin Time 23.9 sec (9.3-11.8)
[2025-09-23 08:00] VITALS: PULSE 59; RESP 13; O2SAT 97
[2025-09-23] MEDS: LOSARTAN POTASSIUM 50 MG TAB PO SCH (10:00)
[2025-09-23] MEDS: METOPROLOL TARTRATE 25 MG TAB PO SCH (10:00)
--- NOTE | 2025-09-23 11:47 | DVHINCON2 ---
Date Seen: Sep 23, 2025 Referring Physician Patrick Reason for Consultation Atrial Fibrillation with RVR History of Present Illness 85-year-old female with a paroxysmal atrial fibrillation on warfarin, HTN, dyslipidemia presents to the hospital with palpitations. Patient states that she has been having increased episodes of palpitations and elevated heart rate though sustained requiring while and started having significant throat discomfort and therefore came to the hospital. Patient has just turned in her event monitoring follows up with a ore fielder on outpatient basis. Endorses he has been having more and more episodes of elevated heart rate noted on her watch, this time she took an extra dose of metoprolol though did not subside. She also endorses has been having more episodes of bradycardia as well with noted heart rate dropping to the 40s. She has been spoke to about a pacemaker in the past and wants to continue following up with Dr. Morales on outpatient basis. Heart rate better controlled at time of assessment sinus rhythm in the 6 0s. Troponin negative x3. BNP 151. CXR unremarkable. INR 2.47. EKG reviewed and shows atrial flutter with variable AV conduction at 134 beats per minute. Past Medical History As stated above Past Surgical History As stated above Family History: Patient reports no known family medical history. Allergies: Coded Allergies: Atorvastatin (Verified Allergy, Unknown, 05/09/25) Home Meds Active Scripts Metoprolol Tartrate (Metoprolol Tartrate) 25 Mg Tab, 0.5 TAB PO BID, #180 TAB 1 Refill Prov:GARO MACHADO MD 05/14/25 Reported Medications Amiodarone Hcl (Amiodarone Hcl) 200 Mg Tab, 100 MG PO DAILY for 30 Days 05/09/25 Rosuvastatin Calcium (Crestor) 10 Mg Tab, 10 MG PO, TAB 05/09/25 Hydrocodone-Acetaminophen (Hydrocodone/Acetaminophen 7.5-325 mg) 1 Tab Tab, 1 TAB PO QID PRN 05/09/25 Warfarin Sodium (Warfarin Sodium) 5 Mg Tab, 1 TAB PO DAILY 05/09/25 Hydralazine HCl (Hydralazine HCl) 25 Mg Tab, 1 TAB PO TID PRN 05/09/25 Losartan Potassium (Losartan Potassium) 50 Mg Tab, 1 TAB PO BID 05/09/25 Levothyroxine Sodium (Levothyroxine Sodium) 150 Mcg Tab, 1 TAB PO DAILY 05/09/25 Current Medications Current Medications Medications (Trade) Dose Ordered Sig/Raul Route PRN Reason Start Time Stop Time Status Last Admin Warfarin Sodium (Coumadin Per Rx Protocol) RX PROTOCOL PER PHARMACY PO 09/22/25 21:45 Amiodarone HCl (Cordarone Tablet) 200 mg Q12HR PO 09/22/25 22:00 09/22/25 22:44 Clonidine HCl (Catapres Tablet) 0.1 mg Q4HP PRN PO SBP>150 09/22/25 21:45 09/23/25 09:08 Losartan Potassium (Cozaar Tablet) 50 mg DAILY PO 09/23/25 10:00 Levothyroxine Sodium (Synthroid Tablet) 150 mcg QAM@0600 PO 09/23/25 06:00 09/23/25 06:21 Sodium Chloride (Saline Lock Ns) 10 ml Q8HR IV 09/22/25 22:00 09/23/25 06:21 Acetaminophen/ Hydrocodone Bitart ([place] 5/325MG Tab) 1 tab Q4HP PRN PO MODERATE PAIN (4-6 PAIN SCALE) 09/22/25 21:45 Ondansetron HCl (Zofran) 4 mg Q4HP PRN IV NAUSEA / VOMITING 09/22/25 21:45 Docusate Sodium (Colace Capsule) 100 mg BIDPRN PRN PO FOR CONSTIPATION 09/22/25 21:45 Acetaminophen (Tylenol Tablet) 650 mg Q6HP PRN PO PAIN SCALE 1-3 OR TEMP>100.4 09/22/25 21:45 Nitroglycerin (Ntrostat Sublingual) 0.4 mg Q5MINP PRN SL FOR CHEST PAIN 09/22/25 21:45 Morphine Sulfate 2 mg Q30M PRN IV FOR CHEST PAIN 09/22/25 21:45 Metoprolol Tartrate (Lopressor Tablet) 12.5 mg BID PO 09/23/25 10:00 Review of Systems Constitutional: No: Fever, Chills, Sweats, Weakness, Malaise, Other Eyes: No: Pain, Vision change, Conjunctivae inflammation, Eyelid inflammation, Other, Redness ENT: No: Ear pain, Ear discharge, Nose pain, Nose discharge, Nose congestion, Mouth pain, Mouth swelling, Throat pain, Throat swelling, Other Respiratory: No: Cough, Dry, Shortness of breath, SOB with exertion, Wheezing, Hemoptysis, Pleuritic Pain, Sputum, Wheezing, Other Cardiovascular: ; No: Chest Pain Palpitations, Orthopnea, Paroxysmal Noc. Dyspnea, Edema, Lt Headedness, Other Gastrointestinal: No: Nausea, Vomiting, Abdominal Pain, Diarrhea, Constipation, Melena, Hematochezia, Other Genitourinary: No Dysuria, No Frequency, No Incontinence, No Hematuria, No Retention, No Other Musculoskeletal: neck pain; No: other, shoulder pain, arm pain, back pain, hand pain, leg pain, foot pain Skin: No: Rash, Lesions, Jaundice, Bruising, Other Neurological: Other (Dizziness, headache.); No: Weakness, Numbness, Incoordination, Change in speech, Confusion, Seizures Vital Signs Vital Signs Date Time Temp Pulse Resp B/P (MAP) Pulse Ox O2 Delivery O2 Flow Rate FiO2 09/23/25 10:00 63 16 138/42 (74) 100 09/23/25 08:00 Room Air* 0 21 09/23/25 08:00 97.7 97.7 Physical Exam General appearance: Patient is well-developed, well-nourished, in no acute dist ress. HEENT: Exam shows: Normocephalic, atraumatic, PERRLA, EOMI Neck: Supple, no bruits Chest: Equal chest excursion bilaterally. Breath sounds normal-no rales or wheezes. Heart: Rhythm: Irregular/Regular rate; no murmur or gallop Abdomen: Exam shows: Soft, nontender, nondistended Musculoskeletal: No clubbing, no cyanosis, no lower extremity edema Dermatology: Skin warm, moist. Neurological: Exam shows: Alert and oriented x4, normal speech Available prior records, labs, EKG, rhythm strips reviewed and interpreted Labs/Diagnostic Data Labs Test 09/23/25 04:57 09/22/25 21:00 09/22/25 17:49 09/22/25 17:43 Range/Units White Blood Count 6.5 # 4.4-10.8 10^3/uL Red Blood Count 4.12 4.0-5.20 10^6/uL Hemoglobin 12.9 12.2-16.2 g/dL Hematocrit 38.3 36.0-46.0 % Mean Corpuscular Volume 93.1 80.0-100.0 fL Mean Corpuscular Hemoglobin 31.4 28.0-32.0 pg Mean Corpuscular Hemoglobin Concent 33.7 32.0-36.0 g/dL Red Cell Distribution Width 13.8 11.8-14.3 % Platelet Count 183 140-450 10^3/uL Mean Platelet Volume 8.1 6.9-10.8 fL Neutrophils (%) (Auto) 64.2 37.0-80.0 % Lymphocytes (%) (Auto) 20.4 10.0-50.0 % Monocytes (%) (Auto) 13.0 H 0.0-12.0 % Eosinophils (%) (Auto) 1.3 0.0-7.0 % Basophils (%) (Auto) 1.1 0.0-2.0 % Neutrophils # (Auto) 4.2 1.6-8.6 10 ^3/uL Lymphocytes # (Auto) 1.3 0.4-5.4 10 ^3/uL Monocytes # (Auto) 0.8 0-1.3 10 ^3/uL Eosinophils # (Auto) 0.1 0-0.8 10 ^3/uL Basophils # (Auto) 0.1 0-0.2 10 ^3/uL Nucleated Red Blood Cells 0.1 % Prothrombin Time 23.9 H 9.3-11.8 sec Prothrombin Time INR 2.47 H 0.9-1.15 Activated Partial Thromboplast Time 38.7 H 24.5-34.5 SEC Sodium Level 143 136-145 mmol/L Potassium Level 3.8 3.5-5.1 mmol/L Chloride Level 110 H 98-107 mmol/L Carbon Dioxide Level 23 20-31 mmol/L Anion Gap 10 5-15 Blood Urea Nitrogen 16 9-23 mg/dL Creatinine 1.03 H 0.550-1.02 mg/dL Glomerular Filtration Rate Calc 53 >90 mL/min BUN/Creatinine Ratio 15.5 10.0-20.0 Serum Glucose 105 74-106 mg/dL Calcium Level 8.8 8.7-10.4 mg/dL Magnesium Level 2.0 1.6-2.6 mg/dL Total Bilirubin 1.0 0.2-1.0 mg/dL Aspartate Amino Transferase (AST) 20 13-40 U/L Alanine Aminotransferase (ALT) 17 7-40 U/L Alkaline Phosphatase 86 46-116 U/L Total Protein 5.9 5.7-8.2 g/dL Albumin 3.7 3.2-4.8 g/dL Thyroid Stimulating Hormone (TSH) 1.50 0.55-4.78 uIU/mL Troponin I High Sensitivity < 3 L </=34 ng/L B-Type Natriuretic Peptide 151.49 0-100 pg/mL Urine Color Colorless Yellow Urine Clarity Clear Clear Urine pH 5.5 5.0-9.0 Urine Specific [place] 1.007 1.001-1.035 Urine Protein Negative Negative Urine Ketones Negative Negative Urine Blood Negative Negative /uL Urine Nitrite Negative Negative Urine Bilirubin Negative Negative Urine Urobilinogen Normal Negative mg/dL Urine Leukocyte Esterase Negative Negative /uL Urine RBC <1 0 - 4 /hpf Urine Microscopic WBC < 1 0-5 /HPF Urine Squamous Epithelial Cells None seen <5 /hpf Urine Bacteria None seen None Seen /hpf Urine Glucose Normal Normal mg/dL Assessment * Paroxysmal atrial fibrillation/flutter with episode of RVR - converted to sinus rhythm overnight. On amiodarone 200 mg p.o. twice daily. Home dose metoprolol 12.5 mg p.o. twice daily restarted. Patient with history of bradycardia, we will defer titrating beta janelle at this time. Patient continue to follow up with ore fielder on outpatient basis for event monitoring results, recent echo reviewed and shows LVEF 55%, moderate LVH, aortic sclerosis , moderate MAC , mild MR. Continue warfarin for stroke prophylaxis, INR therapeutic. * HTN - BP stable, continue metoprolol and losartan. * Dyslipidemia- resume statin on DC. Case Discussed with Dr Michael. There is no further cardiac work-up indicated at this time. Patient is stable for DC from Cardiology standpoint follow up with a ore fielder Dr. Morales. Thank you for allowing us to participate in this patie nt's care. Will sign off. Critical care, time spent: 36 minutes This medical document was created using an electronic medical record system with voice recognition software and computerized dictation system. Although this document has been carefully reviewed, there might still be some phonetic and typographical errors. Occasional wrong-word or ``sound-alike substitutions may have occurred due to the inherent limitations of voice recognition software. These areas are purely typographical due to imperfections of the software programs and do not reflect any compromise in the patient's medical care. Please read the chart carefully and recognize, using context, where these substitutions have occurred. Thank you for allowing me to participate in the management of this patient. The treatment plan was discussed with and agreed upon by patient/family including requesting consultants and ordering of imaging/procedures. Plan discussed with: Patient NYHA Physical activity limitations: Class1(None)absent sob, Date of Service: Sep 23, 2025 Billing Provider: YESSICA GUIDO Cardiology Common Codes: [id number] INP/OBS CARE (High), [id number] CARE 30-74 MIN YESSICA GUIDO Sep 23, 2025 11:47
--- NOTE | 2025-09-23 13:07 | DVHPN2 ---
Reviewed: Care Plan, H&P, Labs, Medications, Previous Orders, Radiology Changes from previous H/P or p: No Changes Eyes: No Pain, No Vision change, No Conjunctivae inflammation, No Eyelid inflammation, No Other, No Redness ENT: No Ear pain, No Ear discharge, No Nose pain, No Nose discharge, No Nose congestion, No Mouth pain, No Mouth swelling, No Throat pain, No Throat swelling, No Other Cardiovascular: No Chest Pain; Palpitations; No Orthopnea, No Paroxysmal Noc. Dyspnea, No Edema, No Lt Headedness, No Other Respiratory: No Cough, No Dry, No Shortness of breath, No SOB with excertion, No Wheezing, No Hemoptysis, No Pleuritic Pain, No Sputum, No Other Gastrointestinal: No Nausea, No Vomiting, No Abdominal Pain, No Diarrhea, No Constipation, No Melena, No Hematochezia, No Other Genitourinary: No Dysuria, No Frequency, No Incontinence, No Hematuria, No Retention, No Other Musculoskeletal: No other, No neck pain, No shoulder pain, No arm pain, No back pain, No hand pain, No leg pain, No foot pain Skin: No Rash, No Lesions, No Jaundice, No Bruising, No Other Objective Vitals Vital Signs Date Time Temp Pulse Resp B/P (MAP) Pulse Ox O2 Delivery O2 Flow Rate FiO2 09/23/25 12:00 54 19 109/46 (67) 94 09/23/25 08:00 Room Air* 0 21 09/23/25 08:00 97.7 97.7 Medications Current Medications Medications Dose Ordered Sig/Raul Route Start Time Stop Time Status Last Admin Dose Admin Warfarin Sodium RX PROTOCOL PER PHARMACY PO 09/22/25 21:45 Amiodarone HCl 200 mg Q12HR PO 09/22/25 22:00 09/23/25 11:29 200 MG Clonidine HCl 0.1 mg Q4HP PRN PO 09/22/25 21:45 09/23/25 09:08 0.1 MG Losartan Potassium 50 mg DAILY PO 09/23/25 10:00 Levothyroxine Sodium 150 mcg QAM@0600 PO 09/23/25 06:00 09/23/25 06:21 150 MCG Sodium Chloride 10 ml Q8HR IV 09/22/25 22:00 09/23/25 06:21 10 ML Acetaminophen/ Hydrocodone Bitart 1 tab Q4HP PRN PO 09/22/25 21:45 Ondansetron HCl 4 mg Q4HP PRN IV 09/22/25 21:45 Docusate Sodium 100 mg BIDPRN PRN PO 09/22/25 21:45 Acetaminophen 650 mg Q6HP PRN PO 09/22/25 21:45 Nitroglycerin 0.4 mg Q5MINP PRN SL 09/22/25 21:45 Morphine Sulfate 2 mg Q30M PRN IV 09/22/25 21:45 Metoprolol Tartrate 12.5 mg BID PO 09/23/25 10:00 Laboratory Results Laboratory Tests 09/23/25 04:57 Chemistry Test 09/22/25 17:49 09/23/25 04:57 Calcium Level 9.0 mg/dL (8.7-10.4) 8.8 mg/dL (8.7-10.4) Magnesium Level 1.8 mg/dL (1.6-2.6) 2.0 mg/dL (1.6-2.6) Albumin 3.7 g/dL (3.2-4.8) Total Protein 5.9 g/dL (5.7-8.2) Coagulation Test 09/23/25 04:57 Prothrombin Time 23.9 sec (9.3-11.8) H Prothrombin Time INR 2.47 (0.9-1.15) H Activated Partial Thromboplast Time 38.7 SEC (24.5-34.5) H Cardiac Markers Test 09/22/25 17:49 B-Type Natriuretic Peptide 151.49 pg/mL (0-100) LFT Test 09/23/25 04:57 Alanine Aminotransferase (ALT) 17 U/L (7-40) Alkaline Phosphatase 86 U/L (46-116) Aspartate Amino Transferase (AST) 20 U/L (13-40) Total Bilirubin 1.0 mg/dL (0.2-1.0) HgA1c, TSH Test 09/23/25 04:57 Thyroid Stimulating Hormone (TSH) 1.50 uIU/mL (0.55-4.78) Urinalysis Test 09/22/25 17:43 Urine Color Colorless (Yellow) Urine Clarity Clear (Clear) Urine pH 5.5 (5.0-9.0) Urine Specific [place] 1.007 (1.001-1.035) Urine Protein Negative (Negative) Urine Ketones Negative (Negative) Urine Blood Negative /uL (Negative) Urine Nitrite Negative (Negative) Urine Bilirubin Negative (Negative) Urine Urobilinogen Normal mg/dL (Negative) Urine Leukocyte Esterase Negative /uL (Negative) Urine RBC <1 /hpf (0 - 4) Urine Microscopic WBC < 1 /HPF (0-5) Urine Squamous Epithelial Cells None seen /hpf (<5) Urine Bacteria None seen /hpf (None Seen) Urine Glucose Normal mg/dL (Normal) Labs and/or images reviewed: Labs reviewed by me, Image(s) reviewed by me Assessment/Plan Assessment/Plan * Paroxysmal atrial fibrillation/flutter with episode of RVR - converted to sinus rhythm overnight. On amiodarone 200 mg p.o. twice daily. Home dose metoprolol 12.5 mg p.o. twice daily restarted. Patient with history of bradycardia, we will defer titrating beta janelle at this time. Patient continue to follow up with ethnographer on outpatient basis for event monitoring results, recent echo reviewed and shows LVEF 55%, moderate LVH, aortic sclerosis , moderate MAC , mild MR. Continue warfarin for stroke prophylaxis, INR therapeutic. * HTN - BP stable, continue metoprolol and losartan. * Dyslipidemia- resume statin on DC. Cardiology consult by Dr. Kendal Michael appreciated Continue metoprolol Coumadin amiodarone losartan and syndrome Time Spent 55 minutes Advanced care planning time 20 minutes Plan discussed with: Patient Date of Service: Sep 23, 2025 Billing Provider: GARO MACHADO MD Common Visit Codes: [id number] INP/OBS CARE(HIGH) Secondary Visit Codes: [id number] CARE PLAN 30 MINUTES GARO MACHADO MD Sep 23, 2025 13:07
[2025-09-23 15:41] VITALS: PULSE 54; RESP 15; O2SAT 97
[2025-09-23] MEDS: ACETAMINOPHEN 325 MG TAB PO PRN (16:10)
[2025-09-23] MEDS: WARFARIN SODIUM 5 MG TAB PO ONE (17:57)
[2025-09-23] MEDS: HYDROcodone-ACET 5/325MG TAB PO PRN (17:57)
[2025-09-23 19:55] VITALS: PULSE 55; O2SAT 97
--- NOTE | 2025-09-23 21:40 | DVHINCON2 ---
Date Seen: Sep 23, 2025 Referring Physician Patrick Reason for Consultation Atrial Fibrillation with RVR History of Present Illness This is an 85-year-old female with a PMH of paroxysmal atrial fibrillation on warfarin, HTN, dyslipidemia presents to the hospital with palpitations. Patient states that she has been having increased episodes of palpitations and elevated heart rate though sustained requiring while and started having significant throat discomfort and therefore came to the hospital. Patient has just turned in her event monitoring follows up with a advertising supervisor on outpatient basis. Endorses she has been having more and more episodes of elevated heart rate noted on her watch, this time she took an extra dose of metoprolol though did not subside. She also endorses has been having more episodes of bradycardia as well with noted heart rate dropping to the 40s. She has been spoken to about a pacemaker in the past and wants to continue following up with Dr. Morales on outpatient basis. Heart rate better controlled at time of assessment sinus rhyt hm in the 60s. Troponin negative x3. BNP 151, INR 2.47. Chest x-ray is unremarkable. EKG reviewed and shows atrial flutter with variable AV conduction at 134 beats per minute. Patient was admitted to the hospital. I am asked to consult on this patient. Past Medical History As stated above Past Surgical History As stated above Family History: Patient reports no known family medical history. Allergies: Coded Allergies: Atorvastatin (Verified Allergy, Unknown, 05/09/25) Magnesium (Verified Allergy, Unknown, 09/23/25) Home Meds Active Scripts Metoprolol Tartrate (Metoprolol Tartrate) 25 Mg Tab, 0.5 TAB PO BID, #180 TAB 1 Refill Prov:GARO MACHADO MD 05/14/25 Reported Medications Amiodarone Hcl (Amiodarone Hcl) 200 Mg Tab, 100 MG PO DAILY for 30 Days 05/09/25 Rosuvastatin Calcium (Crestor) 10 Mg Tab, 10 MG PO, TAB 05/09/25 Hydrocodone-Acetaminophen (Hydrocodone/Acetaminophen 7.5-325 mg) 1 Tab Tab, 1 TAB PO QID PRN 05/09/25 Warfarin Sodium (Warfarin Sodium) 5 Mg Tab, 1 TAB PO DAILY 05/09/25 Hydralazine HCl (Hydralazine HCl) 25 Mg Tab, 1 TAB PO TID PRN 05/09/25 Losartan Potassium (Losartan Potassium) 50 Mg Tab, 1 TAB PO BID 05/09/25 Levothyroxine Sodium (Levothyroxine Sodium) 150 Mcg Tab, 1 TAB PO DAILY 05/09/25 Current Medications Current Medications Medications (Trade) Dose Ordered Sig/Raul Route PRN Reason Start Time Stop Time Status Last Admin Warfarin Sodium (Coumadin Per Rx Protocol) RX PROTOCOL PER PHARMACY PO 09/22/25 21:45 Amiodarone HCl (Cordarone Tablet) 200 mg Q12HR PO 09/22/25 22:00 09/23/25 11:29 Clonidine HCl (Catapres Tablet) 0.1 mg Q4HP PRN PO SBP>150 09/22/25 21:45 09/23/25 09:08 Losartan Potassium (Cozaar Tablet) 50 mg DAILY PO 09/23/25 10:00 Levothyroxine Sodium (Synthroid Tablet) 150 mcg QAM@0600 PO 09/23/25 06:00 09/23/25 06:21 Sodium Chloride (Saline Lock Ns) 10 ml Q8HR IV 09/22/25 22:00 09/23/25 06:21 Acetaminophen/ Hydrocodone Bitart ([place] 5/325MG Tab) 1 tab Q4HP PRN PO MODERATE PAIN (4-6 PAIN SCALE) 09/22/25 21:45 Ondansetron HCl (Zofran) 4 mg Q4HP PRN IV NAUSEA / VOMITING 09/22/25 21:45 Docusate Sodium (Colace Capsule) 100 mg BIDPRN PRN PO FOR CONSTIPATION 09/22/25 21:45 Acetaminophen (Tylenol Tablet) 650 mg Q6HP PRN PO PAIN SCALE 1-3 OR TEMP>100.4 09/22/25 21:45 Nitroglycerin (Ntrostat Sublingual) 0.4 mg Q5MINP PRN SL FOR CHEST PAIN 09/22/25 21:45 Morphine Sulfate 2 mg Q30M PRN IV FOR CHEST PAIN 09/22/25 21:45 Metoprolol Tartrate (Lopressor Tablet) 12.5 mg BID PO 09/23/25 10:00 Review of Systems Constitutional: No: Fever, Chills, Sweats, Weakness, Malaise, Other Eyes: No: Pain, Vision change, Conjunctivae inflammation, Eyelid inflammation, Other, Redness ENT: No: Ear pain, Ear discharge, Nose pain, Nose discharge, Nose congestion, Mouth pain, Mouth swelling, Throat pain, Throat swelling, Other Respiratory: No: Cough, Dry, Shortness of breath, SOB with exertion, Wheezing, Hemoptysis, Pleuritic Pain, Sputum, Wheezing, Other Cardiovascular: ; No: Chest Pain Palpitations, Orthopnea, Paroxysmal Noc. Dyspnea, Edema, Lt Headedness, Other Gastrointestinal: No: Nausea, Vomiting, Abdominal Pain, Diarrhea, Constipation, Melena, Hematochezia, Other Genitourinary: No Dysuria, No Frequency, No Incontinence, No Hematuria, No Retention, No Other Musculoskeletal: neck pain; No: other, shoulder pain, arm pain, back pain, hand pain, leg pain, foot pain Skin: No: Rash, Lesions, Jaundice, Bruising, Other Neurological: Other (Dizziness, headache.); No: Weakness, Numbness, Incoordination, Change in speech, Confusion, Seizures Vital Signs Vital Signs Date Time Temp Pulse Resp B/P (MAP) Pulse Ox O2 Delivery O2 Flow Rate FiO2 09/23/25 12:00 54 19 109/46 (67) 94 09/23/25 08:00 Room Air* 0 21 09/23/25 08:00 97.7 97.7 Physical Exam GENERAL: Alert and oriented x 3. No acute distress. EYES: PERRL, EOMI. Anicteric. HENT: Moist mucous membranes. LUNGS: Clear to auscultation bilaterally. CARDIOVASCULAR: Irregular rate and rhythm. ABDOMEN: Soft, nontender and nondistended. EXTREMITIES: No edema. NEUROLOGIC: No focal neurological deficits. SKIN: Warm, dry. Labs/Diagnostic Data Labs Test 09/23/25 04:57 09/22/25 21:00 09/22/25 17:49 09/22/25 17:43 Range/Units White Blood Count 6.5 # 4.4-10.8 10^3/uL Red Blood Count 4.12 4.0-5.20 10^6/uL Hemoglobin 12.9 12.2-16.2 g/dL Hematocrit 38.3 36.0-46.0 % Mean Corpuscular Volume 93.1 80.0-100.0 fL Mean Corpuscular Hemoglobin 31.4 28.0-32.0 pg Mean Corpuscular Hemoglobin Concent 33.7 32.0-36.0 g/dL Red Cell Distribution Width 13.8 11.8-14.3 % Platelet Count 183 140-450 10^3/uL Mean Platelet Volume 8.1 6.9-10.8 fL Neutrophils (%) (Auto) 64.2 37.0-80.0 % Lymphocytes (%) (Auto) 20.4 10.0-50.0 % Monocytes (%) (Auto) 13.0 H 0.0-12.0 % Eosinophils (%) (Auto) 1.3 0.0-7.0 % Basophils (%) (Auto) 1.1 0.0-2.0 % Neutrophils # (Auto) 4.2 1.6-8.6 10 ^3/uL Lymphocytes # (Auto) 1.3 0.4-5.4 10 ^3/uL Monocytes # (Auto) 0.8 0-1.3 10 ^3/uL Eosinophils # (Auto) 0.1 0-0.8 10 ^3/uL Basophils # (Auto) 0.1 0-0.2 10 ^3/uL Nucleated Red Blood Cells 0.1 % Prothrombin Time 23.9 H 9.3-11.8 sec Prothrombin Time INR 2.47 H 0.9-1.15 Activated Partial Thromboplast Time 38.7 H 24.5-34.5 SEC Sodium Level 143 136-145 mmol/L Potassium Level 3.8 3.5-5.1 mmol/L Chloride Level 110 H 98-107 mmol/L Carbon Dioxide Level 23 20-31 mmol/L Anion Gap 10 5-15 Blood Urea Nitrogen 16 9-23 mg/dL Creatinine 1.03 H 0.550-1.02 mg/dL Glomerular Filtration Rate Calc 53 >90 mL/min BUN/Creatinine Ratio 15.5 10.0-20.0 Serum Glucose 105 74-106 mg/dL Calcium Level 8.8 8.7-10.4 mg/dL Magnesium Level 2.0 1.6-2.6 mg/dL Total Bilirubin 1.0 0.2-1.0 mg/dL Aspartate Amino Transferase (AST) 20 13-40 U/L Alanine Aminotransferase (ALT) 17 7-40 U/L Alkaline Phosphatase 86 46-116 U/L Total Protein 5.9 5.7-8.2 g/dL Albumin 3.7 3.2-4.8 g/dL Thyroid Stimulating Hormone (TSH) 1.50 0.55-4.78 uIU/mL Troponin I High Sensitivity < 3 L </=34 ng/L B-Type Natriuretic Peptide 151.49 0-100 pg/mL Urine Color Colorless Yellow Urine Clarity Clear Clear Urine pH 5.5 5.0-9.0 Urine Specific [place] 1.007 1.001-1.035 Urine Protein Negative Negative Urine Ketones Negative Negative Urine Blood Negative Negative /uL Urine Nitrite Negative Negative Urine Bilirubin Negative Negative Urine Urobilinogen Normal Negative mg/dL Urine Leukocyte Esterase Negative Negative /uL Urine RBC <1 0 - 4 /hpf Urine Microscopic WBC < 1 0-5 /HPF Urine Squamous Epithelial Cells None seen <5 /hpf Urine Bacteria None seen None Seen /hpf Urine Glucose Normal Normal mg/dL Assessment Paroxysmal atrial fibrillation/flutter with episode of RVR. HTN. Dyslipidemia. Plan/Recommendation I agree with your ongoing assessment and care of plan. Patient has been seen by Chris Collins NP on my behalf, him and I discussed the plan with the patient. Patient converted to sinus rhythm overnight. On amiodarone 200 mg p.o. twice daily. Home dose metoprolol 12.5 mg p.o. twice daily restarted. Patient with history of bradycardia, we will defer titrating beta janelle at this time. Patient continue to follow up with advertising supervisor on outpatient basis for event monitoring results, recent echo reviewed and shows LVEF 55%, moderate LVH, aortic sclerosis , moderate MAC , mild MR. Continue warfarin for stroke prophylaxis, INR therapeutic. Continue metoprolol and losartan. Resume statin on DC. Additional plan as per the hospital course. Plan discussed with: Patient NYHA Physical activity limitations: Class1(None)absent sob, Date of Service: Sep 23, 2025 Billing Provider: JF THAKKAR MD Cardiology Common Codes: [id number] INP/OBS CARE (High) Cardiology Consultation Codes: [id number] CONSULT <45MIN JF THAKKAR MD Sep 23, 2025 13:58
[2025-09-23 22:34] VITALS: PULSE 51; RESP 18; O2SAT 97
[2025-09-24] VITALS (8 sets, daily range): BP systolic 145–184; BP diastolic 64–92; PULSE 49–56; RESP 14–18; TEMP 97–98.4; O2SAT 95–99
[2025-09-24 06:02] LABS: Hematocrit 35.6 % (36.0-46.0); Hemoglobin 12.3 g/dL (12.2-16.2); Mean Corpuscular Hemoglobin 32.2 pg (28.0-32.0); Mean Corpuscular Volume 93.3 fL (80.0-100.0); Nucleated Red Blood Cells % 0.1 %
[2025-09-24 06:24] LABS: INR 2.08 (0.9-1.15); Partial Thromboplastin Time 35.6 SEC (24.5-34.5); Prothrombin Time 20.5 sec (9.3-11.8)
--- NOTE | 2025-09-24 09:02 | ECG ---
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
--- NOTE | 2025-09-24 13:49 | DVHPN2 ---
Reviewed: Care Plan, H&P, Labs, Medications, Previous Orders, Radiology Changes from previous H/P or p: No Changes Eyes: No Pain, No Vision change, No Conjunctivae inflammation, No Eyelid inflammation, No Other, No Redness ENT: No Ear pain, No Ear discharge, No Nose pain, No Nose discharge, No Nose congestion, No Mouth pain, No Mouth swelling, No Throat pain, No Throat swelling, No Other Cardiovascular: No Chest Pain; Palpitations; No Orthopnea, No Paroxysmal Noc. Dyspnea, No Edema, No Lt Headedness, No Other Respiratory: No Cough, No Dry, No Shortness of breath, No SOB with excertion, No Wheezing, No Hemoptysis, No Pleuritic Pain, No Sputum, No Other Gastrointestinal: No Nausea, No Vomiting, No Abdominal Pain, No Diarrhea, No Constipation, No Melena, No Hematochezia, No Other Genitourinary: No Dysuria, No Frequency, No Incontinence, No Hematuria, No Retention, No Other Musculoskeletal: No other, No neck pain, No shoulder pain, No arm pain, No back pain, No hand pain, No leg pain, No foot pain Skin: No Rash, No Lesions, No Jaundice, No Bruising, No Other Objective Vitals Vital Signs Date Time Temp Pulse Resp B/P (MAP) Pulse Ox O2 Delivery O2 Flow Rate FiO2 09/24/25 12:56 97.9 53 14 180/92 (121) 96 97.9 09/23/25 22:34 Room Air* 0 21 Intake/Output Intake and Output 09/24/25 07:00 Intake Total 400 ml Balance 400 ml Intake Oral 400 ml # Voids 1 # Bowel Movements 1 Medications Current Medications Medications Dose Ordered Sig/Raul Route Start Time Stop Time Status Last Admin Dose Admin Warfarin Sodium RX PROTOCOL PER PHARMACY PO 09/22/25 21:45 Amiodarone HCl 200 mg Q12HR PO 09/22/25 22:00 09/24/25 09:00 200 MG Clonidine HCl 0.1 mg Q4HP PRN PO 09/22/25 21:45 09/24/25 09:01 0.1 MG Losartan Potassium 50 mg DAILY PO 09/23/25 10:00 09/24/25 09:02 50 MG Levothyroxine Sodium 150 mcg QAM@0600 PO 09/23/25 06:00 09/24/25 06:02 150 MCG Sodium Chloride 10 ml Q8HR IV 09/22/25 22:00 09/24/25 13:36 10 ML Acetaminophen/ Hydrocodone Bitart 1 tab Q4HP PRN PO 09/22/25 21:45 09/24/25 13:11 1 TAB Ondansetron HCl 4 mg Q4HP PRN IV 09/22/25 21:45 Docusate Sodium 100 mg BIDPRN PRN PO 09/22/25 21:45 Acetaminophen 650 mg Q6HP PRN PO 09/22/25 21:45 09/24/25 06:10 650 MG Nitroglycerin 0.4 mg Q5MINP PRN SL 09/22/25 21:45 Morphine Sulfate 2 mg Q30M PRN IV 09/22/25 21:45 Metoprolol Tartrate 12.5 mg BID PO 09/23/25 10:00 09/24/25 09:01 12.5 MG Laboratory Results Laboratory Tests 09/23/25 04:57 09/24/25 04:25 Coagulation Test 09/24/25 04:25 Prothrombin Time 20.5 sec (9.3-11.8) H Prothrombin Time INR 2.08 (0.9-1.15) H Activated Partial Thromboplast Time 35.6 SEC (24.5-34.5) H Urinalysis Test 09/22/25 17:43 Urine Color Colorless (Yellow) Urine Clarity Clear (Clear) Urine pH 5.5 (5.0-9.0) Urine Specific [place] 1.007 (1.001-1.035) Urine Protein Negative (Negative) Urine Ketones Negative (Negative) Urine Blood Negative /uL (Negative) Urine Nitrite Negative (Negative) Urine Bilirubin Negative (Negative) Urine Urobilinogen Normal mg/dL (Negative) Urine Leukocyte Esterase Negative /uL (Negative) Urine RBC <1 /hpf (0 - 4) Urine Microscopic WBC < 1 /HPF (0-5) Urine Squamous Epithelial Cells None seen /hpf (<5) Urine Bacteria None seen /hpf (None Seen) Urine Glucose Normal mg/dL (Normal) Labs and/or images reviewed: Labs reviewed by me, Image(s) reviewed by me Assessment/Plan Assessment/Plan * Paroxysmal atrial fibrillation/flutter with episode of RVR - converted to sinus rhythm overnight. On amiodarone 200 mg p.o. twice daily. Home dose metoprolol 12.5 mg p.o. twice daily restarted. Patient with history of bradycardia, we will defer titrating beta janelle at this time. Patient continue to follow up with fire patroller on outpatient basis for event monitoring results, recent echo reviewed and shows LVEF 55%, moderate LVH, aortic sclerosis , moderate MAC , mild MR. Continue warfarin for stroke prophylaxis, INR therapeutic. * HTN - BP stable, continue metoprolol and losartan. * Dyslipidemia- resume statin on DC. Cardiology consult by Dr. Kendal Michael appreciated Continue metoprolol Coumadin amiodarone losartan and syndrome Time Spent 55 minutes Advanced care planning time 20 minutes Patients Primary fire patroller Dr. Morales Plan discussed with: Patient Date of Service: Sep 24, 2025 Billing Provider: GARO MACHADO MD Common Visit Codes: [id number] INP/OBS CARE(HIGH) GARO MACHADO MD Sep 24, 2025 13:49
[2025-09-24] MEDS: WARFARIN SODIUM 5 MG TAB PO ONE (17:18)
[2025-09-25] VITALS (8 sets, daily range): BP systolic 114–175; BP diastolic 63–85; PULSE 47–55; RESP 16–18; TEMP 97.1–98.1; O2SAT 97–98
--- NOTE | 2025-09-25 00:42 | DVHPN2 ---
Progress Note - Dictate Date Seen: Sep 24, 2025 Medical Necessity Reason Pt with a Central, PICC or Fol: No Subjective Patient was seen and evaluated in follow up. Patient c/o intermittent palpitations. CBC and chemiatry are WNL. Telemetry reviewed. vital signs Vital Sign Date Time Temp Pulse Resp B/P (MAP) Pulse Ox O2 Delivery O2 Flow Rate FiO2 09/24/25 23:51 113/58 09/24/25 23:08 53 09/24/25 21:00 98.4 17 97 98.4 09/24/25 20:00 Room Air* 0 21 Total Intake and Output 09/24/25 09/24/25 09/25/25 15:00 23:00 07:00 Intake Total 240 ml Balance 240 ml medications Current Medications Medications Dose Ordered Sig/Raul Route Start Time Stop Time Status Last Admin Dose Admin Warfarin Sodium RX PROTOCOL PER PHARMACY PO 09/22/25 21:45 Amiodarone HCl 200 mg Q12HR PO 09/22/25 22:00 09/24/25 22:07 200 MG Clonidine HCl 0.1 mg Q4HP PRN PO 09/22/25 21:45 09/24/25 22:51 0.1 MG Losartan Potassium 50 mg DAILY PO 09/23/25 10:00 09/24/25 09:02 50 MG Levothyroxine Sodium 150 mcg QAM@0600 PO 09/23/25 06:00 09/24/25 06:02 150 MCG Sodium Chloride 10 ml Q8HR IV 09/22/25 22:00 09/24/25 22:08 10 ML Acetaminophen/ Hydrocodone Bitart 1 tab Q4HP PRN PO 09/22/25 21:45 09/24/25 13:11 1 TAB Ondansetron HCl 4 mg Q4HP PRN IV 09/22/25 21:45 Docusate Sodium 100 mg BIDPRN PRN PO 09/22/25 21:45 Acetaminophen 650 mg Q6HP PRN PO 09/22/25 21:45 09/24/25 20:14 650 MG Nitroglycerin 0.4 mg Q5MINP PRN SL 09/22/25 21:45 Morphine Sulfate 2 mg Q30M PRN IV 09/22/25 21:45 Metoprolol Tartrate 12.5 mg BID PO 09/23/25 10:00 09/24/25 22:08 12.5 MG objective GENERAL: Alert and oriented x 3. No acute distress. EYES: PERRL, EOMI. Anicteric. HENT: Moist mucous membranes. LUNGS: Clear to auscultation bilaterally. CARDIOVASCULAR: Irregular rate and rhythm. ABDOMEN: Soft, nontender and nondistended. EXTREMITIES: No edema. NEUROLOGIC: No focal neurological deficits. SKIN: Warm, dry. laboratory and microbiology Laboratory Tests 09/24/25 04:25 09/23/25 04:57 Test 09/23/25 04:57 Range/Units Serum Glucose 105 74-106 mg/dL Problem List Paroxysmal atrial fibrillation/flutter with episode of RVR. HTN. Dyslipidemia. Assessment/Plan Continued all current supportive medical care. Morphine and [place] for pain management. Amiodarone. Clonidine, Losartan. Metoprolol. Nitro SL. Warfarin per Rx protocol. Additional plan as per the hospital course. Plan discussed with: Patient JF THAKKAR MD Sep 25, 2025 00:42
[2025-09-25] MEDS: WARFARIN SODIUM 5 MG TAB PO ONE (01:30)
[2025-09-25 07:30] LABS: INR 2.4 (0.9-1.15); Prothrombin Time 23.3 sec (9.3-11.8)
[2025-09-25] MEDS: WARFARIN SODIUM 2 MG TAB PO ONE (17:26)
--- NOTE | 2025-09-25 23:38 | DVHPN2 ---
Progress Note - Dictate Date Seen: Sep 25, 2025 Medical Necessity Reason Pt with a Central, PICC or Fol: No Subjective Patient was seen and evaluated in follow up. Patient complains of intermittent heart palpitations. Telemetry reviewed. vital signs Vital Sign Date Time Temp Pulse Resp B/P (MAP) Pulse Ox O2 Delivery O2 Flow Rate FiO2 09/25/25 12:48 97.3 49 18 175/85 (115) 97 97.3 09/24/25 20:00 Room Air* 0 21 Total Intake and Output 09/24/25 09/24/25 09/25/25 15:00 23:00 07:00 Intake Total 240 ml 300 ml Balance 240 ml 300 ml medications Current Medications Medications Dose Ordered Sig/Raul Route Start Time Stop Time Status Last Admin Dose Admin Warfarin Sodium RX PROTOCOL PER PHARMACY PO 09/22/25 21:45 Amiodarone HCl 200 mg Q12HR PO 09/22/25 22:00 09/25/25 11:19 200 MG Clonidine HCl 0.1 mg Q4HP PRN PO 09/22/25 21:45 09/25/25 11:23 0.1 MG Losartan Potassium 50 mg DAILY PO 09/23/25 10:00 09/25/25 11:19 50 MG Levothyroxine Sodium 150 mcg QAM@0600 PO 09/23/25 06:00 09/25/25 05:20 150 MCG Sodium Chloride 10 ml Q8HR IV 09/22/25 22:00 09/25/25 05:20 10 ML Acetaminophen/ Hydrocodone Bitart 1 tab Q4HP PRN PO 09/22/25 21:45 09/24/25 13:11 1 TAB Ondansetron HCl 4 mg Q4HP PRN IV 09/22/25 21:45 Docusate Sodium 100 mg BIDPRN PRN PO 09/22/25 21:45 Acetaminophen 650 mg Q6HP PRN PO 09/22/25 21:45 09/25/25 12:39 650 MG Nitroglycerin 0.4 mg Q5MINP PRN SL 09/22/25 21:45 Morphine Sulfate 2 mg Q30M PRN IV 09/22/25 21:45 Metoprolol Tartrate 12.5 mg BID PO 09/23/25 10:00 09/24/25 22:08 12.5 MG objective GENERAL: Alert and oriented x 3. No acute distress. EYES: PERRL, EOMI. Anicteric. HENT: Moist mucous membranes. LUNGS: Clear to auscultation bilaterally. CARDIOVASCULAR: Irregular rate and rhythm. ABDOMEN: Soft, nontender and nondistended. EXTREMITIES: No edema. NEUROLOGIC: No focal neurological deficits. SKIN: Warm, dry. laboratory and microbiology Laboratory Tests 09/24/25 04:25 09/23/25 04:57 Test 09/23/25 04:57 Range/Units Serum Glucose 105 74-106 mg/dL Problem List Paroxysmal atrial fibrillation/flutter with episode of RVR. HTN. Dyslipidemia. Assessment/Plan Continued all current supportive medical care. Nitro SL. Amiodarone. Clonidine, Losartan. Morphine and [place] for pain management. Warfarin per Rx. Additional plan as per the hospital course. Plan discussed with: Patient JF THAKKAR MD Sep 25, 2025 14:40
[2025-09-26] VITALS (8 sets, daily range): BP systolic 111–138; BP diastolic 57–76; PULSE 47–59; RESP 15–20; TEMP 97.8–98.4; O2SAT 17–98
[2025-09-26 06:33] LABS: INR 2.64 (0.9-1.15); Partial Thromboplastin Time 38.3 SEC (24.5-34.5); Prothrombin Time 25.4 sec (9.3-11.8)
--- NOTE | 2025-09-26 12:36 | DVHPN2 ---
Reviewed: Care Plan, H&P, Labs, Medications, Previous Orders, Radiology Changes from previous H/P or p: No Changes Eyes: No Pain, No Vision change, No Conjunctivae inflammation, No Eyelid inflammation, No Other, No Redness ENT: No Ear pain, No Ear discharge, No Nose pain, No Nose discharge, No Nose congestion, No Mouth pain, No Mouth swelling, No Throat pain, No Throat swelling, No Other Cardiovascular: No Chest Pain; Palpitations; No Orthopnea, No Paroxysmal Noc. Dyspnea, No Edema, No Lt Headedness, No Other Respiratory: No Cough, No Dry, No Shortness of breath, No SOB with excertion, No Wheezing, No Hemoptysis, No Pleuritic Pain, No Sputum, No Other Gastrointestinal: No Nausea, No Vomiting, No Abdominal Pain, No Diarrhea, No Constipation, No Melena, No Hematochezia, No Other Genitourinary: No Dysuria, No Frequency, No Incontinence, No Hematuria, No Retention, No Other Musculoskeletal: No other, No neck pain, No shoulder pain, No arm pain, No back pain, No hand pain, No leg pain, No foot pain Skin: No Rash, No Lesions, No Jaundice, No Bruising, No Other Objective Vitals Vital Signs Date Time Temp Pulse Resp B/P (MAP) Pulse Ox O2 Delivery O2 Flow Rate FiO2 09/26/25 09:59 53 133/77 09/26/25 09:17 98.4 16 98 98.4 09/26/25 08:15 Room Air* 0 21 Intake/Output Intake and Output 09/26/25 07:00 Intake Total 1450 ml Balance 1450 ml Intake Oral 1450 ml # Voids 9 # Bowel Movements 3 Medications Current Medications Medications Dose Ordered Sig/Raul Route Start Time Stop Time Status Last Admin Dose Admin Warfarin Sodium RX PROTOCOL PER PHARMACY PO 09/22/25 21:45 Amiodarone HCl 200 mg Q12HR PO 09/22/25 22:00 09/25/25 11:19 200 MG Clonidine HCl 0.1 mg Q4HP PRN PO 09/22/25 21:45 09/25/25 11:23 0.1 MG Losartan Potassium 50 mg DAILY PO 09/23/25 10:00 09/26/25 09:55 50 MG Levothyroxine Sodium 150 mcg QAM@0600 PO 09/23/25 06:00 09/26/25 05:43 150 MCG Sodium Chloride 10 ml Q8HR IV 09/22/25 22:00 09/26/25 05:44 10 ML Acetaminophen/ Hydrocodone Bitart 1 tab Q4HP PRN PO 09/22/25 21:45 09/26/25 09:56 1 TAB Ondansetron HCl 4 mg Q4HP PRN IV 09/22/25 21:45 Docusate Sodium 100 mg BIDPRN PRN PO 09/22/25 21:45 Acetaminophen 650 mg Q6HP PRN PO 09/22/25 21:45 09/26/25 05:55 650 MG Nitroglycerin 0.4 mg Q5MINP PRN SL 09/22/25 21:45 Morphine Sulfate 2 mg Q30M PRN IV 09/22/25 21:45 Metoprolol Tartrate 12.5 mg BID PO 09/23/25 10:00 09/24/25 22:08 12.5 MG Laboratory Results Laboratory Tests 09/23/25 04:57 09/24/25 04:25 Coagulation Test 09/26/25 05:35 Prothrombin Time 25.4 sec (9.3-11.8) H Prothrombin Time INR 2.64 (0.9-1.15) H Activated Partial Thromboplast Time 38.3 SEC (24.5-34.5) H Urinalysis Test 09/22/25 17:43 Urine Color Colorless (Yellow) Urine Clarity Clear (Clear) Urine pH 5.5 (5.0-9.0) Urine Specific [place] 1.007 (1.001-1.035) Urine Protein Negative (Negative) Urine Ketones Negative (Negative) Urine Blood Negative /uL (Negative) Urine Nitrite Negative (Negative) Urine Bilirubin Negative (Negative) Urine Urobilinogen Normal mg/dL (Negative) Urine Leukocyte Esterase Negative /uL (Negative) Urine RBC <1 /hpf (0 - 4) Urine Microscopic WBC < 1 /HPF (0-5) Urine Squamous Epithelial Cells None seen /hpf (<5) Urine Bacteria None seen /hpf (None Seen) Urine Glucose Normal mg/dL (Normal) Labs and/or images reviewed: Labs reviewed by me, Image(s) reviewed by me Assessment/Plan Assessment/Plan * Paroxysmal atrial fibrillation/flutter with episode of RVR - converted to sinus rhythm overnight. On amiodarone 200 mg p.o. twice daily. Home dose metoprolol 12.5 mg p.o. twice daily restarted. Patient with history of bradycardia, we will defer titrating beta janelle at this time. Patient continue to follow up with hedge fund manager on outpatient basis for event monitoring results, recent echo reviewed and shows LVEF 55%, moderate LVH, aortic sclerosis , moderate MAC , mild MR. Continue warfarin for stroke prophylaxis, INR therapeutic. * HTN - BP stable, continue metoprolol and losartan. Synthroid * Dyslipidemia- resume statin on DC. Cardiology consult by Dr. Kendal Michael appreciated Continue metoprolol Coumadin amiodarone losartan and Synthroid Time Spent 55 minutes Advanced care planning time 20 minutes Patients Primary hedge fund manager Dr. Moraels Plan discussed with: Patient Date of Service: Sep 26, 2025 Billing Provider: GARO MACHADO MD Common Visit Codes: [id number] INP/OBS CARE(HIGH) GARO MACHADO MD Sep 26, 2025 12:36
--- NOTE | 2025-09-26 12:43 | DVHDS2 ---
Discharge Summary Date of Admission Sep 22, 2025 at 21:31 Date of Discharge: Sep 26, 2025 Admitting Diagnosis Palpitations Wounds: None Labs/Diagnostic Data: Laboratory Results Test 09/26/25 05:35 09/24/25 04:25 09/23/25 04:57 09/22/25 21:00 Prothrombin Time 25.4 sec (9.3-11.8) Prothrombin Time INR 2.64 (0.9-1.15) Activated Partial Thromboplast Time 38.3 SEC (24.5-34.5) White Blood Count 6.3 10^3/uL (4.4-10.8) Red Blood Count 3.82 10^6/uL (4.0-5.20) Hemoglobin 12.3 g/dL (12.2-16.2) Hematocrit 35.6 % (36.0-46.0) Mean Corpuscular Volume 93.3 fL (80.0-100.0) Mean Corpuscular Hemoglobin 32.2 pg (28.0-32.0) Mean Corpuscular Hemoglobin Concent 34.6 g/dL (32.0-36.0) Red Cell Distribution Width 13.8 % (11.8-14.3) Platelet Count 168 10^3/uL (140-450) Mean Platelet Volume 8.2 fL (6.9-10.8) Neutrophils (%) (Auto) 64.6 % (37.0-80.0) Lymphocytes (%) (Auto) 20.4 % (10.0-50.0) Monocytes (%) (Auto) 12.4 % (0.0-12.0) Eosinophils (%) (Auto) 1.7 % (0.0-7.0) Basophils (%) (Auto) 0.9 % (0.0-2.0) Neutrophils # (Auto) 4.1 10 ^3/uL (1.6-8.6) Lymphocytes # (Auto) 1.3 10 ^3/uL (0.4-5.4) Monocytes # (Auto) 0.8 10 ^3/uL (0-1.3) Eosinophils # (Auto) 0.1 10 ^3/uL (0-0.8) Basophils # (Auto) 0.1 10 ^3/uL (0-0.2) Nucleated Red Blood Cells 0.1 % Creatinine 0.97 mg/dL (0.550-1.02) Glomerular Filtration Rate Calc 57 mL/min (>90) Sodium Level 143 mmol/L (136-145) Potassium Level 3.8 mmol/L (3.5-5.1) Chloride Level 110 mmol/L (98-107) Carbon Dioxide Level 23 mmol/L (20-31) Anion Gap 10 (5-15) Blood Urea Nitrogen 16 mg/dL (9-23) BUN/Creatinine Ratio 15.5 (10.0-20.0) Serum Glucose 105 mg/dL (74-106) Calcium Level 8.8 mg/dL (8.7-10.4) Magnesium Level 2.0 mg/dL (1.6-2.6) Total Bilirubin 1.0 mg/dL (0.2-1.0) Aspartate Amino Transferase (AST) 20 U/L (13-40) Alanine Aminotransferase (ALT) 17 U/L (7-40) Alkaline Phosphatase 86 U/L (46-116) Total Protein 5.9 g/dL (5.7-8.2) Albumin 3.7 g/dL (3.2-4.8) Thyroid Stimulating Hormone (TSH) 1.50 uIU/mL (0.55-4.78) Troponin I High Sensitivity < 3 ng/L (</=34) Test 09/22/25 17:49 09/22/25 17:43 B-Type Natriuretic Peptide 151.49 pg/mL (0-100) Urine Color Colorless (Yellow) Urine Clarity Clear (Clear) Urine pH 5.5 (5.0-9.0) Urine Specific [place] 1.007 (1.001-1.035) Urine Protein Negative (Negative) Urine Ketones Negative (Negative) Urine Blood Negative /uL (Negative) Urine Nitrite Negative (Negative) Urine Bilirubin Negative (Negative) Urine Urobilinogen Normal mg/dL (Negative) Urine Leukocyte Esterase Negative /uL (Negative) Urine RBC <1 /hpf (0 - 4) Urine Microscopic WBC < 1 /HPF (0-5) Urine Squamous Epithelial Cells None seen /hpf (<5) Urine Bacteria None seen /hpf (None Seen) Urine Glucose Normal mg/dL (Normal) Other Laboratory Tests 09/24/25 04:25 09/23/25 04:57 Brief Hx & Hospital Course: 85-year-old female with a history of hypertension hypercholesterolemia came in for palpitations found to have paroxysmal atrial fibrillation with a episodes of RVR converted to sinus rhythm overnight placed on amiodarone 200 mg p.o. b.i.d. patient has a history of bradycardia metoprolol was floor to 12.5 mg p.o. b.i.d.. Echo 55 percent ejection fraction with the LVH and aortic sclerosis blood pressure controlled with the losartan use Synthroid for hypothyroidism and Lipitor for the cholesterol cardiology consult by Dr. Michael. Placed on Coumadin and losartan At the time of discharge patient is afebrile with a stable vital signs advised to discontinue metoprolol continue all other home medications and follow up with the primary cardiology Dr. Morales Patient already on Coumadin and amiodarone at home which she will continue. Consults/Reason for consult Cardiology Dr. Kendal Michael Operations or Procedures Echocardiogram Condition at Discharge: Fair Final Diagnosis/Problems List Paroxysmal atrial fibrillation/flutter with episode of RVR - converted to sinus rhythm overnight. On amiodarone 200 mg p.o. twice daily. Home dose metoprolol 12.5 mg p.o. twice daily restarted. Patient with history of bradycardia, we will defer titrating beta janelle at this time. Patient continue to follow up with directory clerk on outpatient basis for event monitoring results, recent echo reviewed and shows LVEF 55%, moderate LVH, aortic sclerosis , moderate MAC , mild MR. Continue warfarin for stroke prophylaxis, INR therapeutic. HTN - BP stable, continue metoprolol and losartan. Synthroid Dyslipidemia- resume statin on DC. Cardiology consult by Dr. Kendal Michael appreciated Continue metoprolol Coumadin amiodarone losartan and Synthroid Discharge Disposition: Home Discharge Instruct/Medications Diet: Cardiac 2g Na,low cholest Activity: Light activity Follow Up/Referral: Stop metoprolol Continue all other home medications Follow up with the directory clerk Dr. Morales Return to ER immediately if any symptoms worsen Medications: none Reviewed home meds Scheduled Amiodarone Hcl (Amiodarone Hcl), 100 MG PO DAILY, (Reported) Levothyroxine Sodium (Levothyroxine Sodium), 1 TAB PO DAILY, (Reported) Losartan Potassium (Losartan Potassium), 1 TAB PO BID, (Reported) Metoprolol Tartrate (Metoprolol Tartrate), 0.5 TAB PO BID Warfarin Sodium (Warfarin Sodium), 1 TAB PO DAILY, (Reported) Scheduled PRN Hydralazine HCl (Hydralazine HCl), 1 TAB PO TID PRN, (Reported) Hydrocodone-Acetaminophen (Hydrocodone/Acetaminophen 7.5-325 mg), 1 TAB PO QID PRN, (Reported) Miscellaneous Medications Rosuvastatin Calcium (Crestor), 10 MG PO, (Reported) 35 (Time taken for discharge summary 35 mts) Discharge Statement: "Patient was advised to return to the ER or call 911 if any headaches, dizziness, shortness of breath, chest pain, abdominal pain, bleeding, fevers, or worsening of medical condition. Patient was counseled about treatment plan, medications, possible side effects, patientverbalized understanding. All questions were answered to the best of my ability. This discharge took greater then 30 minutes in planning, reviewing documentation, counseling the patient, and discussing with other team members." ASSESSMENT ASSESSMENT Hospital Course Improved Assessment Paroxysmal atrial fibrillation/flutter with episode of RVR - converted to sinus rhythm overnight. On amiodarone 200 mg p.o. twice daily. Home dose metoprolol 12.5 mg p.o. twice daily restarted. Patient with history of bradycardia, we will defer titrating beta janelle at this time. Patient continue to follow up with directory clerk on outpatient basis for event monitoring results, recent echo reviewed and shows LVEF 55%, moderate LVH, aortic sclerosis , moderate MAC , mild MR. Continue warfarin for stroke prophylaxis, INR therapeutic. HTN - BP stable, continue metoprolol and losartan. Synthroid Dyslipidemia- resume statin on DC. Cardiology consult by Dr. Kendal Michael appreciated Continue metoprolol Coumadin amiodarone losartan and Synthroid Date of Service: Sep 26, 2025 Billing Provider: GARO MACHADO MD Common Visit Codes: [id number] DISCH DAY >30min GARO MACHADO MD Sep 26, 2025 12:43
--- NOTE | 2025-09-26 16:27 | DVHPN2 ---
Progress Note - Dictate Date Seen: Sep 26, 2025 Medical Necessity Reason Pt with a Central, PICC or Fol: No Subjective Patient was seen and evaluated in follow up. Patient complains of persisting intermittent heart palpitations Telemetry reviewed. vital signs Vital Sign Date Time Temp Pulse Resp B/P (MAP) Pulse Ox O2 Delivery O2 Flow Rate FiO2 09/26/25 09:59 53 133/77 09/26/25 09:17 98.4 16 98 98.4 09/26/25 08:15 Room Air* 0 21 Total Intake and Output 09/25/25 09/25/25 09/26/25 15:00 23:00 07:00 Intake Total 950 ml 500 ml Balance 950 ml 500 ml medications Current Medications Medications Dose Ordered Sig/Raul Route Start Time Stop Time Status Last Admin Dose Admin Warfarin Sodium RX PROTOCOL PER PHARMACY PO 09/22/25 21:45 Amiodarone HCl 200 mg Q12HR PO 09/22/25 22:00 09/25/25 11:19 200 MG Clonidine HCl 0.1 mg Q4HP PRN PO 09/22/25 21:45 09/25/25 11:23 0.1 MG Losartan Potassium 50 mg DAILY PO 09/23/25 10:00 09/26/25 09:55 50 MG Levothyroxine Sodium 150 mcg QAM@0600 PO 09/23/25 06:00 09/26/25 05:43 150 MCG Sodium Chloride 10 ml Q8HR IV 09/22/25 22:00 09/26/25 05:44 10 ML Acetaminophen/ Hydrocodone Bitart 1 tab Q4HP PRN PO 09/22/25 21:45 09/26/25 09:56 1 TAB Ondansetron HCl 4 mg Q4HP PRN IV 09/22/25 21:45 Docusate Sodium 100 mg BIDPRN PRN PO 09/22/25 21:45 Acetaminophen 650 mg Q6HP PRN PO 09/22/25 21:45 09/26/25 05:55 650 MG Nitroglycerin 0.4 mg Q5MINP PRN SL 09/22/25 21:45 Morphine Sulfate 2 mg Q30M PRN IV 09/22/25 21:45 Metoprolol Tartrate 12.5 mg BID PO 09/23/25 10:00 09/24/25 22:08 12.5 MG objective GENERAL: Alert and oriented x 3. No acute distress. EYES: PERRL, EOMI. Anicteric. HENT: Moist mucous membranes. LUNGS: Clear to auscultation bilaterally. CARDIOVASCULAR: Irregular rate and rhythm. ABDOMEN: Soft, nontender and nondistended. EXTREMITIES: No edema. NEUROLOGIC: No focal neurological deficits. SKIN: Warm, dry. laboratory and microbiology Laboratory Tests 09/24/25 04:25 09/23/25 04:57 Test 09/23/25 04:57 Range/Units Serum Glucose 105 74-106 mg/dL Problem List Paroxysmal atrial fibrillation/flutter with episode of RVR. HTN. Dyslipidemia. Assessment/Plan Continued all current supportive medical care. Amiodarone. Clonidine, Losartan. Warfarin per Rx. Metoprolol. Morphine and [place] for pain management. Additional plan as per the hospital course. Plan discussed with: Patient JF THAKKAR MD Sep 26, 2025 13:09
[2025-09-26] MEDS ORDERED: WARFARIN SODIUM 2.5 MG TAB PO ONE (17:00)
== END 2025-09-26 17:00 | disposition home or self-care (01) | DRG 308 ==
LOC: ER 17:20 → OVERFLOW 21:31 → TELE-WESTW 09-23 22:08
PROVIDERS: ADMIT Family Medicine; ATTEND Family Medicine
DX: I48.0 Paroxysmal atrial fibrillation (principal); I50.33 Acute on chronic diastolic (congestive) heart failure; Z79.01 Long term (current) use of anticoagulants; E03.9 Hypothyroidism, unspecified; I10 Essential (primary) hypertension; I70.0 Atherosclerosis of aorta; I48.92 Unspecified atrial flutter; E78.00 Pure hypercholesterolemia, unspecified; G89.29 Other chronic pain; M54.9 Dorsalgia, unspecified; H40.89 Other specified glaucoma; Z88.6 Allergy status to analgesic agent; Z79.899 Other long term (current) drug therapy
CPT/HCPCS: 36415; 71045; 80048; 80053; 81001; 82565; 83735; 83880; 84443; 84484; 85025; 85610; 85730; 93005; 96374; G0378